=== PATIENT | female | born 1955 | race Caucasian/White ===

== ENCOUNTER 2019-02-07 06:02 | Day surgery (SDC) | payer OTHER ==
[2019-02-07 06:53] LABS: Basophils # (Auto) 0.1 K/mm3 (0.0-0.1); Basophils % (Auto) 0.9 % (0.0-1.8); Eosinophils # (Auto) 0.2 K/mm3 (0.0-0.4); Eosinophils % (Auto) 1.9 % (0.0-4.3); Hematocrit 38.1 % (30.3-42.9); Hemoglobin 13.2 gm/dl (10.1-14.3); Lymphocytes # (Auto) 2.8 K/mm3 (1.2-5.4); Lymphocytes % (Auto) 34.1 % (13.4-35.0); Mean Corpuscular HGB Conc 35 % (30-34); Mean Corpuscular Volume 84 fl (79-97); Monocytes # (Auto) 0.6 K/mm3 (0.0-0.8); Monocytes % (Auto) 7.9 % (0.0-7.3); Platelet Count 396 K/mm3 (140-440); Red Blood Count 4.52 M/mm3 (3.65-5.03); Red Cell Distribution Width 13.8 % (13.2-15.2)
[2019-02-07 07:03] LABS: INR 0.94 (0.87-1.13)
[2019-02-07 07:04] LABS: Partial Thromboplastin Time 26.5 Sec. (24.2-36.6)
[2019-02-07 07:05] LABS: BUN/Creatinine Ratio 20; Blood Urea Nitrogen 12 mg/dL (7-17); Calcium 9.4 mg/dL (8.4-10.2); Hemolysis Index 48
[2019-02-07] MEDS: NACL 0.9% 500 ML 500 ML IV SCH ×2 (07:40→08:45)
[2019-02-07] MEDS ORDERED: HEPARIN/NS 5000 UNIT/500ML(CATH LAB) 1,000 ML IR ONE (08:11)
[2019-02-07] MEDS ORDERED: CALAN ONE (08:12)
[2019-02-07] MEDS: VERSED ONE ×3 (08:46→08:50)
[2019-02-07] MEDS: SUBLIMAZE ONE ×2 (08:48→08:50)
[2019-02-07] MEDS: XYLOCAINE 2% INFILTRATI ONE ×2 (08:50→08:56)
[2019-02-07] MEDS: NITROGLYCERIN SYRINGE 3 ML ONE ×2 (08:57→08:58)
[2019-02-07] MEDS: HEPARIN 10,000 UNITS/10 ML ONE ×2 (08:57→08:58)
[2019-02-07] MEDS ORDERED: ULTRAM PO PRN (09:30)
--- NOTE | 2019-02-07 09:33 | Short Stay Summary ---
Short Stay Documentation Date of service: 02/07/19 - History H&P: obtained from office - Allergies and Medications Current Medications: Allergies No Known Allergies Allergy (Unverified 02/07/19 06:03) Home Medications Medication Instructions Recorded Confirmed Last Taken Type Aspirin [Adult Low Dose Aspirin EC] 81 mg PO DAILY 02/07/19 02/07/19 02/07/19 History 1 tab Fenofibrate Nanocrystallized 145 mg PO DAILY 02/07/19 02/07/19 02/07/19 History [Fenofibrate] 1 tab Hydralazine HCl 50 mg PO BID 02/07/19 02/07/19 02/06/19 History 1 tab ISOSORBIDE MONOnitrate [Imdur ER] 30 mg PO DAILY 02/07/19 02/07/19 02/07/19 History 1 tab hydroCHLOROthiazide 12.5 mg PO DAILY 02/07/19 02/07/19 02/06/19 History [Hydrochlorothiazide] 1 tab Active Medications Sodium Chloride (Nacl 0.9% 500 Ml) 500 mls @ 50 mls/hr IV DIRECT DAYANA Stop: 02/07/19 16:59 Last Admin: 02/07/19 08:45 Dose: 50 mls/hr Documented by: - Brief post op/procedure progress note Date of procedure: 02/07/19 Pre-op diagnosis: chest pain and abnl stress test Post-op diagnosis: other (triple vessel cad) Procedure: see report Anesthesia: local Estimated blood loss: none Pathology: none - Disposition Condition at discharge: Good Disposition: DC-01 TO HOME OR SELFCARE - Discharge Diagnoses (1) Hypertension Status: Chronic Qualifiers: Hypertension type: essential hypertension Qualified Code(s): I10 - Essential (primary) hypertension (2) Hyperlipemia, mixed Status: Chronic (3) CAD (coronary artery disease) Status: Acute Qualifiers: Coronary Disease-Associated Artery/Lesion type: [place] artery [place] vs. transplanted heart: [place] heart Associated angina: with stable angina Qualified Code(s): I25.118 - Atherosclerotic heart disease of [place] coronary artery with other forms of angina pectoris (4) Abnormal cardiovascular stress test Status: Acute Short Stay Discharge Plan Activity: advance as tolerated Diet: regular, low fat, low cholesterol Wound: keep clean and dry Follow up with: MARCIA KIMBROUGH MD [Primary Care Provider] - 7 Days
[2019-02-07 14:40] VITALS: BP 129/81
--- NOTE | 2019-02-07 21:10 | Cardiac Catherization Report ---
LEFT HEART CATHETERIZATION CLINICAL INFORMATION: 1. This is a 64-year-old [place] female with a history of hypertension and hyperlipidemia, has been having chest pain. The stress test showed poor exercise capacity, 4 minutes on Jesse protocol with ST depressions in inferolateral leads suggestive of ischemia with normal LV function on echocardiogram with no significant regurgitation, is brought here for a left heart catheterization despite medical therapy with long-acting nitrates and BP control. 2. It was done under moderate sedation 1 mg Versed and 25 mcg fentanyl. Total sedation time was 15 minutes, started at 8:48 a.m. and finished at 9:03 a.m. 3. Left heart catheterization performed via the right radial artery, sterile technique, local anesthesia, 6-Micronesian radial sheath inserted. 4. Left system engaged with a JL3.5 catheter. Findings: Left main is medium to large caliber patent, bifurcates into a medium caliber, proximal is patent, and then right after a [id number] caliber diagonal, which has an ostial 80% lesion with [id number]-driudw tortuosity of the vessel and then after the septal, which is a medium caliber, the LAD becomes 100%. You see extensive left late collaterals feeding the distal LAD via the diagonal and then the circumflex, medium caliber vessel, proximal to mid, has an 80% lesion going into a small OM1 and OM2 into the distal circumflex, focal lesion, but you see extensive collateralization feeding into the PDA via the circ and the septals, which is a large caliber. 5. The RCA was engaged the with JR4 catheter. It is a large dominant vessel with aneurysm vessels in the proximal mid portion with a proximal 80% in-between two aneurysmal sections and then the mid becomes 90% diffuse disease and becomes 100% distally. See extensive RV branches that did give collaterals into the mid to distal LAD, which is a small-caliber vessel and then the distal RCA is 100%. 6. An LV gram done in HAITIAN and BRUCE view showed normal LV function, EF 55% to 60%. LVEDP 14 mmHg, LV is 148, aortic is 140/69. No gradient across the aortic valve on pullback. The 5-Micronesian catheters taken out by guidewire, 6-Micronesian radial sheath was discontinued. Radial band applied. No hematoma, no bleeding. SUMMARY: Extensive triple-vessel disease with left main patent, LAD mid 100%, diagonal 1 ostial 80%, left to left collaterals feeding the distal LAD, and circumflex mid 80%, with extensive collateralization feeding into a PDA, which is a large caliber. 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 In view of such extensive blockage, the patient will go to [facility] for bypass surgery. Discussed this in detail via search engine optimization analyst with the patient's son and patient. JOB# [id number] BRIANNA/ZAIRA
== END 2019-02-07 13:15 | disposition home or self-care (01) ==
LOC: CATHLABREC 06:02
PROVIDERS: ATTEND Internal Medicine
DX: R07.9 Chest pain, unspecified (principal); I10 Essential (primary) hypertension; I25.10 Atherosclerotic heart disease of native coronary artery without angina pectoris; E78.2 Mixed hyperlipidemia; Z79.82 Long term (current) use of aspirin; Z79.899 Other long term (current) drug therapy; Z82.49 Family history of ischemic heart disease and other diseases of the circulatory system
CPT/HCPCS: 36415; 80048; 85025; 85610; 85730; 93005; 93010; 93458; 99156; C1894; J1644; J2250; J3010; J7040; Q9967

== ENCOUNTER 2020-06-18 00:03 | Inpatient (IN) | payer OTHER ==
[2020-06-18] MEDS ORDERED: ONDANSETRON 4 MG/2 ML INJ IV ONE (00:20)
[2020-06-18] MEDS ORDERED: SODIUM CHLORIDE 0.9% 1000 ML 1,000 ML IV ONE (00:20)
[2020-06-18] MEDS ORDERED: ASPIRIN 325 MG TAB PO ONE (00:21)
--- NOTE | 2020-06-18 00:24 | Emergency Department Report ---
- General Chief complaint: Abdominal Pain Stated complaint: WEAKNESS N/V PUI?: No Time Seen by Provider: 06/18/20 00:19 Source: patient Mode of arrival: Stretcher Limitations: Language Barrier - History of Present Illness Initial comments: Patient is a 65-year-old female that presents emergency room for weakness and nausea, vomiting and abdominal pain. Patient states her symptoms started approximately 2 hours ago. Patient states that her family called EMS. Patient was brought in by EMS. Report received from EMS. EMS states the patient was diaphoretic and bradycardic. Patient EKG shows sinus bradycardia. EMS gave the patient some fluids and Zofran and her symptoms improved. Patient states she vomited 3 times and is having generalized abdominal pain. Patient states the abdominal pain is a 4 out of 10. Patient states the abdominal pain is better with rest and worse with movement and vomiting. Patient denies fever and chills. Patient denies cough. Patient denies chest pain. Patient denies shortness of breath. Patient states that her weakness started after vomiting 3 times. Patient denies recent travel. Patient denies recent international travel. Patient denies exposure to the novel coronavirus. Patient denies sick contacts. Patient denies fever and chills. Patient denies cough. Patient denies diarrhea. Patient denies coming in contact with anybody with symptoms of the novel coronavirus. Complaint: generalized weakness - Related Data Home Medications Medication Instructions Recorded Confirmed Last Taken Aspirin [Adult Low Dose Aspirin EC] 81 mg PO DAILY 02/07/19 02/07/19 02/07/19 1 tab Fenofibrate Nanocrystallized 145 mg PO DAILY 02/07/19 02/07/19 02/07/19 [Fenofibrate] 1 tab Hydralazine HCl 50 mg PO BID 02/07/19 02/07/19 02/06/19 1 tab ISOSORBIDE MONOnitrate [Imdur ER] 30 mg PO DAILY 02/07/19 02/07/19 02/07/19 1 tab hydroCHLOROthiazide 12.5 mg PO DAILY 02/07/19 02/07/19 02/06/19 [Hydrochlorothiazide] 1 tab Previous Rx's Medication Instructions Recorded Last Taken Type AtorvaSTATin [Lipitor] 20 mg PO QHS #30 tab 02/07/19 Unknown Rx Allergies Allergy/AdvReac Type Severity Reaction Status Date / Time aspirin Allergy Unknown Verified 06/18/20 03:42 ED Review of Systems ROS: Stated complaint: WEAKNESS N/V Other details as noted in HPI Constitutional: diaphoresis, weakness. denies: chills, fever Eyes: denies: eye pain, eye discharge, vision change ENT: denies: ear pain, throat pain Respiratory: denies: cough, shortness of breath, wheezing Cardiovascular: denies: chest pain, palpitations Endocrine: no symptoms reported Gastrointestinal: abdominal pain, nausea, vomiting. denies: diarrhea Genitourinary: denies: urgency, dysuria, discharge Musculoskeletal: denies: back pain, joint swelling, arthralgia Skin: denies: rash, lesions Neurological: weakness. denies: headache, paresthesias Psychiatric: denies: anxiety, depression Hematological/Lymphatic: denies: easy bleeding, easy bruising ED Past Medical Hx - Past Medical History Previous Medical History?: Yes Hx Hypertension: Yes Hx Heart Attack/AMI: Yes Hx Diabetes: Yes - Surgical History Past Surgical History?: Yes Hx Open Heart Surgery: Yes - Family History Family history: no significant - Social History Smoking Status: Never Smoker - Medications Home Medications: Home Medications Medication Instructions Recorded Confirmed Last Taken Type Aspirin [Adult Low Dose Aspirin EC] 81 mg PO DAILY 02/07/19 02/07/19 02/07/19 History 1 tab AtorvaSTATin [Lipitor] 20 mg PO QHS #30 tab 02/07/19 Unknown Rx Fenofibrate Nanocrystallized 145 mg PO DAILY 02/07/19 02/07/19 02/07/19 History [Fenofibrate] 1 tab Hydralazine HCl 50 mg PO BID 02/07/19 02/07/19 02/06/19 History 1 tab ISOSORBIDE MONOnitrate [Imdur ER] 30 mg PO DAILY 02/07/19 02/07/19 02/07/19 History 1 tab hydroCHLOROthiazide 12.5 mg PO DAILY 02/07/19 02/07/19 02/06/19 History [Hydrochlorothiazide] 1 tab ED Physical Exam - General General appearance: alert, in no apparent distress - Head Head exam: Present: atraumatic, normocephalic - Eye Eye exam: Present: normal appearance, PERRL, EOMI Pupils: Present: normal accommodation - ENT ENT exam: Present: mucous membranes moist - Neck Neck exam: Present: normal inspection - Respiratory Respiratory exam: Present: normal lung sounds bilaterally, other (Midline sternal scar noted). Absent: respiratory distress - Cardiovascular Cardiovascular Exam: Present: regular rate, normal rhythm, bradycardia. Absent: systolic murmur, diastolic murmur, rubs, gallop - GI/Abdominal GI/Abdominal exam: Present: soft, tenderness (Generalized tenderness), normal bowel sounds. Absent: distended, guarding - Extremities Exam Extremities exam: Present: normal inspection - Back Exam Back exam: Present: normal inspection - Neurological Exam Neurological exam: Present: alert, oriented X3 - Psychiatric Psychiatric exam: Present: normal affect, normal mood - Skin Skin exam: Present: warm, dry, intact, normal color. Absent: rash - Assessment Assessment Interval: Baseline - Level of Consciousness 1a. Level of Consciousness: alert/keenly responsive - LOC Questions 1b. LOC Questions: answers both correctly - LOC Command 1c. LOC Commands: performs tasks correctly - Best Gaze 2. Best Gaze: normal - Visual 3. Visual: no visual loss - Facial Palsy 4. Facial Palsy: normal symmetrical movement - Motor Arm 5a. Motor Arm Left: no drift 5b. Motor Arm Right: no drift - Motor Leg 6a. Motor Leg Left: no drift 6b. Motor Leg Right: no drift - Limb Ataxia 7. Limb Ataxia: absent - Sensory 8. Sensory: normal - Best Language 9. Best Language: no aphasia - Dysarthria 10. Dysarthria: normal - Extinction and Inattention 11. Extinction/Inattention: no abnormality - Scoring Total Score: 0 Stroke Severity: No Stroke Symptoms ED Course Vital Signs 06/18/20 06/18/20 06/18/20 01:06 01:16 01:30 Pulse Rate 50 L 64 Respiratory 15 16 Rate Blood Pressure 122/83 122/83 Blood Pressure [Right] O2 Sat by Pulse 100 99 99 Oximetry 06/18/20 06/18/20 02:00 03:35 Pulse Rate 51 L 57 L Respiratory 16 14 Rate Blood Pressure 169/48 Blood Pressure 164/75 [Right] O2 Sat by Pulse 100 98 Oximetry - Reevaluation(s) Reevaluation #1: Patient states she is feeling better. Heart rate is stable but bradycardic. Patient on nurse monitoring 06/18/20 01:50 Reevaluation #2: I discussed all results with patient. I discussed plan of care with patient. Patient agrees with plan of care and admission. Patient to be admitted to the hospitalist service. 06/18/20 03:50 - Consultations Consultation #1: Hospitalist consulted for admission. Hospitalist to admit patient. 06/18/20 03:50 Consultation #2: I discussed the CT findings with Dr. Hills, vascular surgery. 06/18/20 03:54 ED Medical Decision Making - Lab Data Result diagrams: 06/18/20 00:41 06/18/20 00:41 - EKG Data -: EKG Interpreted by Nm EKG shows normal: sinus rhythm, axis, intervals, QRS complexes, ST-T waves Rate: bradycardia - Radiology Data Radiology results: report reviewed CHEST 1 VIEW INDICATION / CLINICAL INFORMATION: weakness. COMPARISON: None available. FINDINGS: SUPPORT DEVICES: None. HEART / MEDIASTINUM: No significant abnormality. LUNGS / PLEURA: 1.6 cm nodule in the right lung base No pneumothorax. ADDITIONAL FINDINGS: No significant additional findings. IMPRESSION: Sternotomy. 1.6 cm nodular density in the right lung base CT head/brain wo con INDICATION / CLINICAL INFORMATION: Patient has complaints of weakness. TECHNIQUE: All CT scans at this location are performed using CT dose reduction for ALARA by means of automated exposure control. COMPARISON: None available. FINDINGS: Ventricle size is normal. No mass or mass effect is seen. There is no evidence of intracranial hemorrhage. No obvious area of infarction is identified. Visualized paranasal sinuses are clear. IMPRESSION: No acute findings CT abdomen pelvis w con INDICATION / CLINICAL INFORMATION: Patient has complaints of abdominal Pain. TECHNIQUE: All CT scans at this location are performed using CT dose reduction for ALARA by means of automated exposure control. COMPARISON: None available. FINDINGS: There is a 1.5 cm noncalcified nodule in the right middle lobe. No free fluid is seen in the abdomen. An endovascular stent is present in the abdominal aorta and iliac a rteries with an endoleak present. The aorta measures 5.25 cm in maximal diameter. The liver, spleen, kidneys, pancreas and adrenal glands are normal. In the pelvis, no free fluid is seen. Uterus is enlarged. No enlarged lymph nodes are identified. The bladder is normal. The appendix is not well visualized. No significant skeletal abnormality is seen. IMPRESSION: 1. 1.5 cm noncalcified nodule in the right middle lobe 2. Endovascular stent in the abdominal aorta and iliac arteries with an endoleak present. The aorta measures 5.25 cm in maximal diameter 3. Enlarged uterus - Medical Decision Making Patient is a 65-year-old female that presents emergency room for weakness, nausea whole body, abdominal pain. Patient is been advised consistent with gastroenteritis. Patient was also found to be bradycardic. Patient currently stable in the ER. Patient's labs are remarkable for hyponatremia and hyperkalemia. Patient admitted to the hospitalist service for further evaluation and treatment. Patient had a CT scan of the abdomen which showed no acute findings however did show some endovascular leakage and I discussed this with vascular surgery and vascular surgery said he just needs to be monitored. Patient responded well to treatment. Patient did not have any further nausea or vomiting or diaphoresis in the ER. - Differential Diagnosis Bradycardia, weakness,N/V, gastroenteritis, diaphoresis, abdominal pain Critical Care Time: Yes Critical care time in (mins) excluding proc time.: 35 Critical care attestation.: If time is entered above; I have spent that time in minutes in the direct care of this critically ill patient, excluding procedure time. Critical Care Time: 35 minutes ED Disposition Clinical Impression: Bradycardia, Weakness, Gastroenteritis, Hyponatremia, Hypokalemia Abdominal pain Qualifiers: Abdominal location: generalized Qualified Code(s): R10.84 - Generalized abdominal pain Nausea & vomiting Qualifiers: Vomiting type: unspecified Vomiting Intractability: non-intractable Qualified Code(s): R11.2 - Nausea with vomiting, unspecified Disposition: 09 OP ADMIT IP TO THIS HOSP Is pt being admited?: Yes Does the pt Need Aspirin: No Condition: Critical Time of Disposition: 03:52
--- NOTE | 2020-06-18 00:45 | XRay Report ---
CHEST 1 VIEW INDICATION / CLINICAL INFORMATION: weakness. COMPARISON: None available. FINDINGS: SUPPORT DEVICES: None. HEART / MEDIASTINUM: No significant abnormality. LUNGS / PLEURA: 1.6 cm nodule in the right lung base No pneumothorax. ADDITIONAL FINDINGS: No significant additional findings. IMPRESSION: Sternotomy. 1.6 cm nodular density in the right lung base Signer Name: Orlando Hernandez MD FACR Signed: 06/18/2020 12:40 AM Workstation Name: [id number]
[2020-06-18 01:16] LABS: Basophils % (Auto) 0.3 % (0.0-1.8); Eosinophils # (Auto) 0.1 K/mm3 (0.0-0.4); Eosinophils % (Auto) 1.4 % (0.0-4.3); Hematocrit 39.4 % (30.3-42.9); Hemoglobin 13.8 gm/dl (10.1-14.3); Lymphocytes # (Auto) 2.3 K/mm3 (1.2-5.4); Lymphocytes % (Auto) 31.6 % (13.4-35.0); Mean Corpuscular HGB Conc 35 % (30-34); Mean Corpuscular Volume 81 fl (79-97); Monocytes # (Auto) 0.6 K/mm3 (0.0-0.8); Monocytes % (Auto) 8.3 % (0.0-7.3); Platelet Count 243 K/mm3 (140-440); Red Blood Count 4.84 M/mm3 (3.65-5.03)
[2020-06-18 01:30] LABS: Alanine Aminotransferase 8 units/L (7-56); Albumin 4.4 g/dL (3.9-5); BUN/Creatinine Ratio 10; Bilirubin,Direct 0.2 mg/dL (0-0.2); Blood Urea Nitrogen 6 mg/dL (7-17); Calcium 9.6 mg/dL (8.4-10.2); Hemolysis Index 14
[2020-06-18] MEDS ORDERED: ASPIRIN 325 MG TAB ONE (02:28)
[2020-06-18] MEDS ORDERED: ONDANSETRON 4 MG/2 ML INJ ONE (02:28)
[2020-06-18 02:54] LABS: Bilirubin,Urine NEG (Negative); Blood,Urine NEG (Negative); Color,Urine Colorless (Yellow); Protein,Urine <15 mg/dL mg/dL (Negative); RBC,Urine < 1.0 /HPF (0.0-6.0); Urobilinogen,Urine < 2.0 mg/dL (<2.0); WBC,Urine < 1.0 /HPF (0.0-6.0)
--- NOTE | 2020-06-18 02:54 | Cat Scan Report ---
CT head/brain wo con INDICATION / CLINICAL INFORMATION: Patient has complaints of weakness. TECHNIQUE: All CT scans at this location are performed using CT dose reduction for ALARA by means of automated e xposure control. COMPARISON: None available. FINDINGS: Ventricle size is normal. No mass or mass effect is seen. There is no evidence of intracranial hemorr suzie. No obvious area of infarction is identified. Visualized paranasal sinuses are clear. IMPRESSION: No acute findings Signer Name: Orlando Hernandez MD FACR Signed: 06/18/2020 2:49 AM Workstation Name: [id number]
--- NOTE | 2020-06-18 02:57 | Cat Scan Report ---
CT abdomen pelvis w con INDICATION / CLINICAL INFORMATION: Patient has complaints of abdominal Pain. TECHNIQUE: All CT scans at this location are performed using CT dose reduction for ALARA by means of automated e xposure control. COMPARISON: None available. FINDINGS: There is a 1.5 cm noncalcified nodule in the right middle lobe. No free fluid is seen in the abdomen. An endovascular stent is present in the abdominal aorta and iliac arteries with an endoleak present. The aorta measures 5.25 cm in maximal diameter. The liver, spleen, kidneys, pancreas and adrenal gla nds are normal. In the pelvis, no free fluid is seen. Uterus is enlarged. No enlarged lymph nodes are identified. The bladder is normal. The appendix is not well visualized. No significant skeletal abnormality is seen. IMPRESSION: 1. 1.5 cm noncalcified nodule in the right middle lobe 2. Endovascular stent in the abdominal aorta and iliac arteries with an endoleak present. The aorta m easures 5.25 cm in maximal diameter 3. Enlarged uterus Signer Name: Orlando Hernandez MD FACR Signed: 06/18/2020 2:53 AM Workstation Name: [id number]
[2020-06-18] MEDS: POTASSIUM CHLORIDE 10 MEQ 10 MEQ/100 ML BAG IV SCH ×2 (04:10→13:00)
[2020-06-18] MEDS ORDERED: POTASSIUM CHLORIDE ER 20 MEQ TAB PO ONE (05:05)
[2020-06-18] MEDS ORDERED: MORPHINE 2 MG/1 ML INJ IV PRN (05:07)
[2020-06-18] MEDS ORDERED: ONDANSETRON 4 MG/2 ML INJ IV PRN (05:07)
[2020-06-18] MEDS: SODIUM CHLORIDE 0.9% 1000 ML 1,000 ML IV SCH ×2 (05:46→21:31)
--- NOTE | 2020-06-18 06:21 | History and Physical Report ---
History of Present Illness Date of examination: 06/18/20 Date of admission: 06/18/20 03:51 Chief complaint: Abdominal ipain , nausea and vomiting , weakness History of present illness: 65 year old female brought by EMS because of abdominal pain, nausea and vomiting and weakness, patient said symptoms started about 2 hours prior to presentation with diffuse abdominal pain and there was history of diaphoresis with bradycardia when EMS picked patient up. There was no history of fever or chills, no history of shortness of breath cough or chest pain. Past History Past Medical History: CAD Past Surgical History: CABG Social history: no significant social history Family history: no significant family history Medications and Allergies Allergies Allergy/AdvReac Type Severity Reaction Status Date / Time aspirin Allergy Unknown Verified 06/18/20 03:42 Home Medications Medication Instructions Recorded Confirmed Last Taken Type Aspirin [Adult Low Dose Aspirin EC] 81 mg PO DAILY 02/07/19 02/07/19 02/07/19 History 1 tab AtorvaSTATin [Lipitor] 20 mg PO QHS #30 tab 02/07/19 Unknown Rx Fenofibrate Nanocrystallized 145 mg PO DAILY 02/07/19 02/07/19 02/07/19 History [Fenofibrate] 1 tab Hydralazine HCl 50 mg PO BID 02/07/19 02/07/19 02/06/19 History 1 tab ISOSORBIDE MONOnitrate [Imdur ER] 30 mg PO DAILY 02/07/19 02/07/19 02/07/19 History 1 tab hydroCHLOROthiazide 12.5 mg PO DAILY 02/07/19 02/07/19 02/06/19 History [Hydrochlorothiazide] 1 tab Active Meds: Active Medications Sodium Chloride (Nacl 0.9% 1000 Ml) 1,000 mls @ 75 mls/hr IV DIRECT DAYANA Last Admin: 06/18/20 05:46 Dose: 75 mls/hr Documented by: Morphine Sulfate (Morphine) 2 mg IV Q4H PRN PRN Reason: Pain, Moderate (4-6) Ondansetron HCl (Zofran) 4 mg IV Q4H PRN PRN Reason: Nausea And Vomiting Review of Systems Constitutional: sweats, weakness, malaise, no weight loss, no weight gain, no fever, no chills, no night sweats, no anorexia, no fatigue, no lethargy Eyes: bilateral: other (NO BILATERAL EYE SYMPTOMS) Ears, nose, mouth and throat: no ear pain, no nose pain, no nasal congestion, no nasal discharge, no sinus pressure, no mouth pain, no dysphagia, no hoarseness, no sore throat, no swelling in mouth, no headache, no vertigo Breasts: deferred Cardiovascular: no chest pain, no orthopnea, no palpitations, no edema, no syncope, no lightheadedness, no shortness of breath Respiratory: no cough, no shortness of breath, no dyspnea on exertion, no congestion, no wheezing Gastrointestinal: abdominal pain, nausea, vomiting, no diarrhea, no constipation, no change in bowel habits, no hematochezia, no heartburn, no jaund ice Genitourinary Female: no Menstruation: postmenopausal Rectal: no pain, no itching Musculoskeletal: no neck stiffness, no neck pain, no arm numbness/tingling, no low back pain, no muscle weakness Integumentary: no rash, no pruritis, no redness, no sores, no wounds, no jaundice, no growths, no bullae, no lesions, no acne Neurological: no weakness, no parathesias, no numbness, no tingling, no seizures, no syncope, no tremors, no vertigo, no headaches, no migraines, no convulsions, no aphasia, no change in speech, no change in mentation, no confusion Psychiatric: no anxiety, no memory loss, no insomnia, no hypersomnia, no confusion Endocrine: no cold intolerance, no polydipsia, no polyuria, no nocturia, no palpatations Hematologic/Lymphatic: no easy bruising, no easy bleeding, no lymphadenopathy Exam - Constitutional Vitals: Temp Pulse Resp BP Pulse Ox 57 L 14 164/75 98 06/18/20 03:35 06/18/20 03:35 06/18/20 03:35 06/18/20 03:35 General appearance: Present: mild distress - EENT Eyes: Present: PERRL, EOM intact ENT: hearing intact, clear oral mucosa, dentition normal - Neck Neck: Present: supple, normal ROM - Respiratory Respiratory effort: normal - Cardiovascular Rhythm: regular Heart Sounds: Present: S1 & S2. Absent: gallop, systolic murmur, diastolic murmur, click - Extremities Extremities: no ischemia, No edema Peripheral Pulses: within normal limits - Abdominal General gastrointestinal: Present: soft, tender, non-distended. Absent: non- tender, distended, rigid, hepatomegaly, splenomegaly Female genitourinary: Present: deferred - Rectal Rectal Exam: deferred - Integumentary Integumentary: Present: clear, warm, dry. Absent: jaundice, rash - Musculoskeletal Musculoskeletal: strength equal bilaterally - Psychiatric Psychiatric: appropriate mood/affect - Neurologic Neurologic: CNII-XII intact HEART Score - HEART Score Age: 45-65 Risk factors: 1-2 risk factors Troponin: Troponin T < 0.010 ng/mL (0.00-0.029) 06/18/20 00:41 Troponin: < normal limit - Critical Actions Critical Actions: 0-3 pts:0.9-1.7%risk of adverse cardiac event.Candidate for discharge Results - Labs CBC & Chem 7: 06/18/20 00:41 06/18/20 00:41 Labs: Laboratory Last Values WBC 7.1 K/mm3 (4.5-11.0) 06/18/20 00:41 RBC 4.84 M/mm3 (3.65-5.03) 06/18/20 00:41 Hgb 13.8 gm/dl (10.1-14.3) 06/18/20 00:41 Hct 39.4 % (30.3-42.9) 06/18/20 00:41 MCV 81 fl (79-97) 06/18/20 00:41 MCH 29 pg (28-32) 06/18/20 00:41 MCHC 35 % (30-34) H 06/18/20 00:41 RDW 14.0 % (13.2-15.2) 06/18/20 00:41 Plt Count 243 K/mm3 (140-440) 06/18/20 00:41 Lymph % (Auto) 31.6 % (13.4-35.0) 06/18/20 00:41 [place] % (Auto) 8.3 % (0.0-7.3) H 06/18/20 00:41 Eos % (Auto) 1.4 % (0.0-4.3) 06/18/20 00:41 Baso % (Auto) 0.3 % (0.0-1.8) 06/18/20 00:41 Lymph # 2.3 K/mm3 (1.2-5.4) 06/18/20 00:41 [place] # 0.6 K/mm3 (0.0-0.8) 06/18/20 00:41 Eos # 0.1 K/mm3 (0.0-0.4) 06/18/20 00:41 Baso # 0.0 K/mm3 (0.0-0.1) 06/18/20 00:41 Seg Neutrophils % 58.4 % (40.0-70.0) 06/18/20 00:41 Seg Neutrophils # 4.2 K/mm3 (1.8-7.7) 06/18/20 00:41 Sodium 118 mmol/L (137-145) L* 06/18/20 00:41 Potassium 3.1 mmol/L (3.6-5.0) L 06/18/20 00:41 Chloride 79.8 mmol/L (98-107) L 06/18/20 00:41 Carbon Dioxide 22 mmol/L (22-30) 06/18/20 00:41 Anion Gap 19 mmol/L 06/18/20 00:41 BUN 6 mg/dL (7-17) L 06/18/20 00:41 Creatinine 0.6 mg/dL (0.6-1.2) 06/18/20 00:41 Estimated GFR > 60 ml/min 06/18/20 00:41 BUN/Creatinine Ratio 10 % 06/18/20 00:41 Glucose 114 mg/dL (65-100) H 06/18/20 00:41 Calcium 9.6 mg/dL (8.4-10.2) 06/18/20 00:41 Magnesium 1.70 mg/dL (1.7-2.3) 06/18/20 03:30 Total Bilirubin 1.60 mg/dL (0.1-1.2) H 06/18/20 00:41 Direct Bilirubin 0.2 mg/dL (0-0.2) 06/18/20 00:41 Indirect Bilirubin 1.4 mg/dL 06/18/20 00:41 AST 19 units/L (5-40) 06/18/20 00:41 ALT 8 units/L (7-56) 06/18/20 00:41 Alkaline Phosphatase 85 units/L (35-129) 06/18/20 00:41 Total Creatine Kinase 232 units/L (30-135) H 06/18/20 00:41 Troponin T < 0.010 ng/mL (0.00-0.029) 06/18/20 00:41 Total Protein 7.1 g/dL (6.3-8.2) 06/18/20 00:41 Albumin 4.4 g/dL (3.9-5) 06/18/20 00:41 Albumin/Globulin Ratio 1.6 % 06/18/20 00:41 Urine Color Colorless (Yellow) 06/18/20 Unknown Urine Turbidity Clear (Clear) 06/18/20 Unknown Urine pH 7.0 (5.0-7.0) 06/18/20 Unknown Ur Specific [place] 1.003 (1.003-1.030) 06/18/20 Unknown Urine Protein <15 mg/dl mg/dL (Negative) 06/18/20 Unknown Urine Glucose (UA) Neg mg/dL (Negative) 06/18/20 Unknown Urine Ketones Tr mg/dL (Negative) 06/18/20 Unknown Urine Blood Neg (Negative) 06/18/20 Unknown Urine Nitrite Neg (Negative) 06/18/20 Unknown Urine Bilirubin Neg (Negative) 06/18/20 Unknown Urine Urobilinogen < 2.0 mg/dL (<2.0) 06/18/20 Unknown Ur Leukocyte Esterase Neg (Negative) 06/18/20 Unknown Urine WBC (Auto) < 1.0 /HPF (0.0-6.0) 06/18/20 Unknown Urine RBC (Auto) < 1.0 /HPF (0.0-6.0) 06/18/20 Unknown Assessment and Plan - Patient Problems (1) Abdominal pain Current Visit: Yes Status: Acute Qualifiers: Abdominal location: generalized Qualified Code(s): R10.84 - Generalized abdominal pain Plan to address problem: I I.V MORPHINE FOR PAIN 2. I.V ZOFRAN FOR NAUSEA AND VOMITING 3. VASCULAR SURGICAL CONSULT TO EVALUATE ABDOMINAL AORTIC ANEURYSM (2) Bradycardia Current Visit: Yes Status: Acute Plan to address problem: 1.SERIAL TROPONIN LEVEL 2. 2-D ECHOCARDIOGRAM 3. TELEMETRY MONITORING (3) Hypokalemia Current Visit: Yes Status: Acute Plan to address problem: 1. KCL REPLACEMENT 2. BMP MORNITORING (4) Hyponatremia Current Visit: Yes Status: Acute Plan to address problem: 1. I.V NORMAL SALINE 2. BMP MONITORING (5) Abdominal aortic aneurysm Current Visit: Yes Status: Acute Plan to address problem: VASCULAR SURGICAL CONSULT
--- NOTE | 2020-06-18 09:09 | Consultation ---
History of Present Illness - Reason for Consult Consult date: 06/18/20 Endoleak Requesting physician: TRENT HASTINGS - History of Present Illness HPI: 65-year-old female who presented to the emergency department with complaints of generalized malaise, nausea and non-bilious emesis 1 to 2 hours prior to her presentation. In addition, the patient states she began to feel some discomfort in her abdomen which she thought was related to feeling anxious due to not feeling well. She states she has experienced this general discomfort all her life intermittently. The patient has a history of an abdominal aortic aneurysm repair back in October 2019 at an outside institution. Her aneurysm was fixed from an endovascular approach but the patient does not know where or who performed the procedure. At the time of repair, the patient states she was having abdominal pain which led to the finding of her aneurysm and subsequent repair. The patient states she has not followed up with her surgeon since the operation. The patient denies lower extremity claudication. Of note, the patient had open heart surgery performed approximately 1 year ago. She denies symptoms of chest pain or shortness of breath on exertion. 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 after midnight Past History Past Medical History: CAD Past Surgical History: CABG Social history: no significant social history Family history: no significant family history Medications and Allergies Allergies Allergy/AdvReac Type Severity Reaction Status Date / Time aspirin Allergy Unknown Verified 06/18/20 03:42 Home Medications Medication Instructions Recorded Confirmed Last Taken Type Aspirin [Adult Low Dose Aspirin EC] 81 mg PO DAILY 02/07/19 02/07/19 02/07/19 History 1 tab AtorvaSTATin [Lipitor] 20 mg PO QHS #30 tab 02/07/19 Unknown Rx Fenofibrate Nanocrystallized 145 mg PO DAILY 02/07/19 02/07/19 02/07/19 History [Fenofibrate] 1 tab Hydralazine HCl 50 mg PO BID 02/07/19 02/07/19 02/06/19 History 1 tab ISOSORBIDE MONOnitrate [Imdur ER] 30 mg PO DAILY 02/07/19 02/07/19 02/07/19 History 1 tab hydroCHLOROthiazide 12.5 mg PO DAILY 02/07/19 02/07/19 02/06/19 History [Hydrochlorothiazide] 1 tab Active Meds: Active Medications Sodium Chloride (Nacl 0.9% 1000 Ml) 1,000 mls @ 75 mls/hr IV DIRECT DAYANA Last Admin: 06/18/20 05:46 Dose: 75 mls/hr Documented by: Morphine Sulfate (Morphine) 2 mg IV Q4H PRN PRN Reason: Pain, Moderate (4-6) Ondansetron HCl (Zofran) 4 mg IV Q4H PRN PRN Reason: Nausea And Vomiting Exam - Constitutional Vitals: Temp Pulse Resp BP Pulse Ox 54 L 16 147/69 83 L 06/18/20 05:30 06/18/20 05:11 06/18/20 05:51 06/18/20 05:51 Results - Labs CBC & Chem 7: 06/18/20 00:41 06/18/20 00:41 Labs: Abnormal lab results 06/18/20 06/18/20 06/18/20 Range/Units 00:41 00:41 00:41 MCHC 35 H (30-34) % [place] % (Auto) 8.3 H (0.0-7.3) % Sodium 118 L* (137-145) mmol/L Potassium 3.1 L (3.6-5.0) mmol/L Chloride 79.8 L (98-107) mmol/L BUN 6 L (7-17) mg/dL Glucose 114 H (65-100) mg/dL Total Bilirubin 1.60 H (0.1-1.2) mg/dL Total Creatine Kinase 232 H (30-135) units/L
--- NOTE | 2020-06-18 11:18 | Anesthesia Consultation ---
<AMERICA PARSONS - Last Filed: 06/18/20 11:14> Anesthesia Consult and Med Hx Date of service: 06/18/20 - Airway Anesthetic Teeth Evaluation: Poor ROM Head & Neck: Adequate Mental/Hyoid Distance: Adequate Mallampati Class: Class II Intubation Access Assessment: Probably Good - Pre-Operative Health Status ASA Pre-Surgery Classification: ASA3 Proposed Anesthetic Plan: General, MAC - Pulmonary Hx Smoking: No Hx Asthma: No Hx Respiratory Symptoms: Yes (lung biospy 2019 "spots in lung") SOB: No COPD: No Home Oxygen Therapy: No Hx Pneumonia: No Hx Sleep Apnea: No - Cardiovascular System Hx Hypertension: Yes Hx Coronary Artery Disease: Yes (CABG 02/2019) Hx Heart Attack/AMI: Yes Hx Angina: Yes Hx Percutaneous Transluminal Coronary Angioplasty (PTCA): No Hx Cardia Arrhythmia: No Hx Pacemaker: No Hx Internal Defibrillator: No Hx Valvular Heart Disease: No Hx Heart Murmur: No Hx Peripheral Vascular Disease: No - Central Nervous System Hx Neuromuscular Disorder: No Hx Seizures: No CVA: No Hx Back Pain: No Hx Psychiatric Problems: No - Gastrointestinal Hx Ulcer: No Hx Gastroesophageal Reflux Disease: No - Endocrine Hx Renal Disease: No Hx End Stage Renal Disease: No Hx Cirrhosis: No Hx Liver Disease: No Hx Insulin Dependent Diabetes: No Hx Non-Insulin Dependent Diabetes: No Hx Thyroid Disease: No Hx Hypothyroidism: No Hx Hyperthyroidism: No - Hematic Hx Anemia: Yes Hx Sickle Cell Disease: No - Other Systems Hx Alcohol Use: No Hx Substance Use: No Hx Cancer: No Hx Obesity: No <EVANGELINA SERNA - Last Filed: 06/19/20 10:53> Anesthesia Consult and Med Hx - Airway Anesthetic Teeth Evaluation: Poor ROM Head & Neck: Adequate Mental/Hyoid Distance: Adequate Mallampati Class: Class II Intubation Access Assessment: Probably Good - Pulmonary Exam CTA: Yes - Cardiac Exam Cardiac Exam: RRR - Pre-Operative Health Status ASA Pre-Surgery Classification: ASA3 Proposed Anesthetic Plan: MAC - Pulmonary Hx Respiratory Symptoms: No - Cardiovascular System Hx Hypertension: Yes Hx Coronary Artery Disease: Yes Hx Heart Attack/AMI: Yes Hx Pacemaker: No Hx Internal Defibrillator: No - Central Nervous System CVA: No - Endocrine Hx Renal Disease: No Hx Liver Disease: No Hx Insulin Dependent Diabetes: No Hx Non-Insulin Dependent Diabetes: No - Additional Comments Anesthesia Medical History Comments: Hx AAA s/p EVAR in 2019 now with abdominal pain and evidence of endoleak on imaging. Scheduled for aortogram w/ possible endoleak repair in label coder. Plan MAC but will convert to GA if procedure becomes more extensive. pRBCs on standby. Will place large bore IV and arterial line pre-procedure.
--- NOTE | 2020-06-18 13:05 | Consultation ---
History of Present Illness Consult date: 06/18/20 Requesting physician: NEAL BARBOUR Consult reason: known to you, pre op evaluation History of present illness: the pt is a 65-year-old female with a past medical history of AAA repair in 10/2019, CAD s/p CABG x4 in 02/2019, HTN, HLP. She is followed in our office by Dr. Valdivia. She presented to the emergency department with complaints of generalized malaise, nausea and non-bilious emesis 1 to 2 hours prior to her p resentation. In addition, the patient states she began to feel some discomfort in her abdomen which she thought was related to feeling anxious due to not feeling well. 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 Per vascular team, patient would benefit from diagnostic aortogram with possible endoleak repair which is currently scheduled for tomorrow. Cardiology has been consulted to provide preoperative cardiac risk stratification. Pt denies any cardiac complaints. tte done 02/2019 showed EF 55-60%, mild TR. LHC 02/2019 showed triple vessel CAD - pt referred for CABG. Past History Past Medical History: CAD, other (as per HPI) Past Surgical History: CABG Social history: no significant social history Family history: no significant family history Medications and Allergies Allergies Allergy/AdvReac Type Severity Reaction Status Date / Time aspirin Allergy Unknown Verified 06/18/20 03:42 Home Medications Medication Instructions Recorded Confirmed Last Taken Type Aspirin [Adult Low Dose Aspirin EC] 81 mg PO DAILY 02/07/19 02/07/19 02/07/19 History 1 tab AtorvaSTATin [Lipitor] 20 mg PO QHS #30 tab 02/07/19 Unknown Rx Fenofibrate Nanocrystallized 145 mg PO DAILY 02/07/19 02/07/19 02/07/19 History [Fenofibrate] 1 tab Hydralazine HCl 50 mg PO BID 02/07/19 02/07/19 02/06/19 History 1 tab ISOSORBIDE MONOnitrate [Imdur ER] 30 mg PO DAILY 02/07/19 02/07/19 02/07/19 History 1 tab hydroCHLOROthiazide 12.5 mg PO DAILY 02/07/19 02/07/19 02/06/19 History [Hydrochlorothiazide] 1 tab Active Meds: Active Medications Sodium Chloride (Nacl 0.9% 1000 Ml) 1,000 mls @ 75 mls/hr IV DIRECT DAYANA Last Admin: 06/18/20 05:46 Dose: 75 mls/hr Documented by: Morphine Sulfate (Morphine) 2 mg IV Q4H PRN PRN Reason: Pain, Moderate (4-6) Ondansetron HCl (Zofran) 4 mg IV Q4H PRN PRN Reason: Nausea And Vomiting Review of Systems Constitutional: malaise, no weight loss, no weight gain, no fever, no chills, no sweats Ears, nose, mouth and throat: no ear pain, no nose pain, no sinus pressure, no sinus pain Cardiovascular: no chest pain, no orthopnea, no palpitations, no rapid/irregular heart beat, no edema, no syncope, no lightheadedness, no shortness of breath, no dyspnea on exertion Respiratory: no cough, no shortness of breath, no dyspnea on exertion, no coco estion, no pleurisy, no pain on inspiration Gastrointestinal: abdominal pain, nausea, vomiting, no diarrhea, no constipation, no change in bowel habits Genitourinary Female: no pelvic pain, no flank pain, no dysuria, no urinary frequency, no urgency Musculoskeletal: no neck stiffness, no neck pain, no shooting arm pain, no arm numbness/tingling, no low back pain, no shooting leg pain Integumentary: no rash, no pruritis, no redness, no sores, no wounds Neurological: no head injury, no paralysis, no weakness, no parathesias, no numbness, no tingling, no seizures, no syncope Psychiatric: no anxiety Endocrine: no cold intolerance, no heat intolerance Hematologic/Lymphatic: no easy bruising, no easy bleeding Allergic/Immunologic: no urticaria Physical Examination Vital Signs Pulse Ox 100 06/18/20 01:06 General appearance: no acute distress HEENT: Positive: PERRL, Normocephaly, Mucus Membranes Moist Neck: Positive: neck supple, trachea midline Cardiac: Positive: Reg Rate and Rhythm, S1/S2 Lungs: Positive: Decreased Breath Sounds Neuro: Positive: Grossly Intact Abdomen: Negative: Tender Skin: Negative: Rash Musculoskeletal: No Pain Extremities: Absent: edema Results 06/18/20 00:41 06/18/20 00:41 Cardiac Enzymes 06/18/20 Range/Units 00:41 AST 19 (5-40) units/L CBC 06/18/20 Range/Units 00:41 WBC 7.1 (4.5-11.0) K/mm3 RBC 4.84 (3.65-5.03) M/mm3 Hgb 13.8 (10.1-14.3) gm/dl Hct 39.4 (30.3-42.9) % Plt Count 243 (140-440) K/mm3 Lymph # 2.3 (1.2-5.4) K/mm3 [place] # 0.6 (0.0-0.8) K/mm3 Eos # 0.1 (0.0-0.4) K/mm3 Baso # 0.0 (0.0-0.1) K/mm3 Comprehensive Metabolic Panel 06/18/20 Range/Units 00:41 Sodium 118 L* (137-145) mmol/L Potassium 3.1 L (3.6-5.0) mmol/L Chloride 79.8 L (98-107) mmol/L Carbon Dioxide 22 (22-30) mmol/L BUN 6 L (7-17) mg/dL Creatinine 0.6 (0.6-1.2) mg/dL Glucose 114 H (65-100) mg/dL Calcium 9.6 (8.4-10.2) mg/dL Direct Bilirubin 0.2 (0-0.2) mg/dL Indirect Bilirubin 1.4 mg/dL AST 19 (5-40) units/L ALT 8 (7-56) units/L Alkaline Phosphatase 85 (35-129) units/L Total Protein 7.1 (6.3-8.2) g/dL Albumin 4.4 (3.9-5) g/dL - Imaging and Cardiology Echo: pending, report reviewed (02/2019 showed EF 55-60%, mild TR. ) EKG: report reviewed, image reviewed EKG interpretations - Telemetry EKG Rhythm: Sinus Rhythm - EKG Sinus rhythms and dysrhythmias: sinus rhythm Assessment and Plan Pt is s/p AAA repair in 10/2019. She has been found to have endoleak along the limbs of the endograft. Per vascular team, patient would benefit from diagnostic aortogram with possible endoleak repair which is currently scheduled for tomorrow. Cardiology has been consulted to provide preoperative cardiac risk stratification. Pt denies any cardiac complaints. Currently stable cardiac status. Pt is at moderate cardiovascular risk for contemplated surgery. There are no immediate cardiac contraindications to proceeding with contemplated surgery. Obtain echo. Assessment and plan d/w pt and pt's son via telephone. Will follow. The patient has been seen in conjunction with Dr. Washington Basurto who agrees with the assessment and plan of care. - Patient Problems (1) History of AAA (abdominal aortic aneurysm) repair Current Visit: Yes Status: Acute (2) Abdominal pain Current Visit: Yes Status: Acute Qualifiers: Abdominal location: generalized Qualified Code(s): R10.84 - Generalized abdominal pain (3) Nausea & vomiting Current Visit: Yes Status: Acute Qualifiers: Vomiting type: unspecified Vomiting Intractability: non-intractable Qualified Code(s): R11.2 - Nausea with vomiting, unspecified (4) CAD (coronary artery disease) Current Visit: Yes Status: Chronic Qualifiers: Coronary Disease-Associated Artery/Lesion type: [place] artery [place] vs. transplanted heart: [place] heart Associated angina: with stable angina Qualified Code(s): I25.118 - Atherosclerotic heart disease of [place] coronary artery with other forms of angina pectoris (5) History of coronary artery bypass graft Current Visit: Yes Status: Chronic (6) Hypertension Current Visit: Yes Status: Chronic Qualifiers: Hypertension type: essential hypertension Qualified Code(s): I10 - Essential (primary) hypertension (7) Hyperlipemia, mixed Current Visit: Yes Status: Chronic
[2020-06-18 14:25] LABS: BUN/Creatinine Ratio 8; Blood Urea Nitrogen 5 mg/dL (7-17); Calcium 8.8 mg/dL (8.4-10.2); Hemolysis Index 3
--- NOTE | 2020-06-18 20:44 | Progress Note ---
Assessment and Plan Assessment and plan: -- Abdominal pain Current Visit: Yes Status: Acute Plan to address problem: Pain medications, supportive care --History of abdominal aortic aneurysm repair 10/2019 Current Visit: Yes Status: Acute Plan to address problem: Vascular consulted CT revealed Endo leak along the limbs of the endograft Aortogram and possible endoleak repair tomorrow per vascular. --History of coronary artery disease status post CABG; Current Visit: Yes Status: Acute Continue current cardiac medications management per cardiology --Hypertension Current Visit: Yes Status: Acute Plan to address problem: Moderate control, continue current antihypertensives PRN medications --Hypokalemia Current Visit: Yes Status: Acute Plan to address problem: Replenish with KCl monitor electrolytes -- Hyponatremia Current Visit: Yes Status: Acute Plan to address problem: Follow electrolytes IV normal saline replacement therapy --dyslipidemia Current Visit: Yes Status: Acute Lipid-lowering medications We will closely monitor the patient and adjust management as needed Paper Core Machine Operator recommendations noted and appreciated Plan of care reviewed with the patient and her nurse Advance care 32 minutes History Interval history: I have seen and examined the patient at the bedside Patient's chart current medication list tests reviewed Patient feels slightly better Vascular and cardiology following the patient Vital signs noted Hospitalist Physical - Constitutional Vitals: Temp Pulse Resp BP Pulse Ox 98.0 F 69 18 127/67 96 06/18/20 16:05 06/18/20 16:05 06/18/20 16:05 06/18/20 16:05 06/18/20 16:05 General appearance: Present: no acute distress, well-nourished - EENT Eyes: Present: PERRL, EOM intact - Neck Neck: Present: supple, normal ROM - Respiratory Respiratory effort: normal Respiratory: bilateral: diminished, negative: rales, rhonchi, wheezing - Cardiovascular Rhythm: regular Heart Sounds: Present: S1 & S2 - Extremities Extremities: no ischemia, No edema - Abdominal General gastrointestinal: soft, non-tender, non-distended, normal bowel sounds - Integumentary Integumentary: Present: clear, warm - Psychiatric Psychiatric: appropriate mood/affect, memory intact - Neurologic Neurologic: moves all extremities HEART Score - HEART Score Age: 45-65 Risk factors: 1-2 risk factors Troponin: Troponin T < 0.010 ng/mL (0.00-0.029) 06/18/20 00:41 Troponin: < normal limit - Critical Actions Critical Actions: 0-3 pts:0.9-1.7%risk of adverse cardiac event.Candidate for discharge Results - Labs CBC & Chem 7: 06/18/20 00:41 06/18/20 13:50 Labs: Laboratory Last Values WBC 7.1 K/mm3 (4.5-11.0) 06/18/20 00:41 RBC 4.84 M/mm3 (3.65-5.03) 06/18/20 00:41 Hgb 13.8 gm/dl (10.1-14.3) 06/18/20 00:41 Hct 39.4 % (30.3-42.9) 06/18/20 00:41 MCV 81 fl (79-97) 06/18/20 00:41 MCH 29 pg (28-32) 06/18/20 00:41 MCHC 35 % (30-34) H 06/18/20 00:41 RDW 14.0 % (13.2-15.2) 06/18/20 00:41 Plt Count 243 K/mm3 (140-440) 06/18/20 00:41 Lymph % (Auto) 31.6 % (13.4-35.0) 06/18/20 00:41 [place] % (Auto) 8.3 % (0.0-7.3) H 06/18/20 00:41 Eos % (Auto) 1.4 % (0.0-4.3) 06/18/20 00:41 Baso % (Auto) 0.3 % (0.0-1.8) 06/18/20 00:41 Lymph # 2.3 K/mm3 (1.2-5.4) 06/18/20 00:41 [place] # 0.6 K/mm3 (0.0-0.8) 06/18/20 00:41 Eos # 0.1 K/mm3 (0.0-0.4) 06/18/20 00:41 Baso # 0.0 K/mm3 (0.0-0.1) 06/18/20 00:41 Seg Neutrophils % 58.4 % (40.0-70.0) 06/18/20 00:41 Seg Neutrophils # 4.2 K/mm3 (1.8-7.7) 06/18/20 00:41 Sodium 133 mmol/L (137-145) L D 06/18/20 13:50 Potassium 3.7 mmol/L (3.6-5.0) 06/18/20 13:50 Chloride 98.5 mmol/L (98-107) 06/18/20 13:50 Carbon Dioxide 22 mmol/L (22-30) 06/18/20 13:50 Anion Gap 16 mmol/L 06/18/20 13:50 BUN 5 mg/dL (7-17) L 06/18/20 13:50 Creatinine 0.6 mg/dL (0.6-1.2) 06/18/20 13:50 Estimated GFR > 60 ml/min 06/18/20 13:50 BUN/Creatinine Ratio 8 % 06/18/20 13:50 Glucose 95 mg/dL (65-100) 06/18/20 13:50 Calcium 8.8 mg/dL (8.4-10.2) 06/18/20 13:50 Magnesium 1.70 mg/dL (1.7-2.3) 06/18/20 03:30 Total Bilirubin 1.60 mg/dL (0.1-1.2) H 06/18/20 00:41 Direct Bilirubin 0.2 mg/dL (0-0.2) 06/18/20 00:41 Indirect Bilirubin 1.4 mg/dL 06/18/20 00:41 AST 19 units/L (5-40) 06/18/20 00:41 ALT 8 units/L (7-56) 06/18/20 00:41 Alkaline Phosphatase 85 units/L (35-129) 06/18/20 00:41 Total Creatine Kinase 232 units/L (30-135) H 06/18/20 00:41 Troponin T < 0.010 ng/mL (0.00-0.029) 06/18/20 00:41 Total Protein 7.1 g/dL (6.3-8.2) 06/18/20 00:41 Albumin 4.4 g/dL (3.9-5) 06/18/20 00:41 Albumin/Globulin Ratio 1.6 % 06/18/20 00:41 Urine Color Colorless (Yellow) 06/18/20 Unknown Urine Turbidity Clear (Clear) 06/18/20 Unknown Urine pH 7.0 (5.0-7.0) 06/18/20 Unknown Ur Specific [place] 1.003 (1.003-1.030) 06/18/20 Unknown Urine Protein <15 mg/dl mg/dL (Negative) 06/18/20 Unknown Urine Glucose (UA) Neg mg/dL (Negative) 06/18/20 Unknown Urine Ketones Tr mg/dL (Negative) 06/18/20 Unknown Urine Blood Neg (Negative) 06/18/20 Unknown Urine Nitrite Neg (Negative) 06/18/20 Unknown Urine Bilirubin Neg (Negative) 06/18/20 Unknown Urine Urobilinogen < 2.0 mg/dL (<2.0) 06/18/20 Unknown Ur Leukocyte Esterase Neg (Negative) 06/18/20 Unknown Urine WBC (Auto) < 1.0 /HPF (0.0-6.0) 06/18/20 Unknown Urine RBC (Auto) < 1.0 /HPF (0.0-6.0) 06/18/20 Unknown Vu/IV: Voiding Method Toilet IV Catheter Type [Left Hand] INT / Saline Lock Active Medications - Current Medications Current Medications: Generic Name Dose Route Start Last Admin Trade Name Freq PRN Reason Stop Dose Admin Sodium Chloride 1,000 mls @ 75 mls/hr 06/18/20 05:15 06/18/20 05:46 Nacl 0.9% 1000 Ml IV 75 mls/hr DIRECT DAYANA Administration Morphine Sulfate 2 mg 06/18/20 05:07 06/18/20 18:03 Morphine IV 2 mg Q4H PRN Administration Pain, Moderate (4-6) Ondansetron HCl 4 mg 06/18/20 05:07 Zofran IV Q4H PRN Nausea And Vomiting
--- NOTE | 2020-06-19 10:49 | Anesthesia Day of Surgery ---
Anesthesia Day of Surgery - Day of Surgery Patient Examined: Yes Patient H&P Reviewed: Yes Patient is NPO: Yes Cardiac Clearance: Yes
[2020-06-19] MEDS ORDERED: LIDOCAINE (2%) 20 MG/1 ML VIAL 20 ML MDV INFILTRATI ONE ×2 (11:00→11:02)
[2020-06-19] MEDS ORDERED: HEPARIN 10,000 UNITS/10 ML VIAL ONE (11:00)
[2020-06-19] MEDS ORDERED: HEPARIN/NS 5000 UNIT/500ML 1,000 ML IR ONE (11:00)
[2020-06-19] MEDS ORDERED: ceFAZolin/Water 2 GM/20 ML 2 GM/20 ML SYRINGE IV ONE (11:01)
[2020-06-19] MEDS ORDERED: HYDROmorphone 1 MG/1 ML INJ ONE (11:22)
[2020-06-19] MEDS ORDERED: MIDAZOLAM 2 MG/2 ML INJ ONE (11:22)
[2020-06-19] MEDS ORDERED: propofoL 200 MG/20 ML VIAL IV ONE ×3 (11:22→11:23)
[2020-06-19] MEDS ORDERED: LIDOCAINE MPF (2%) 20 MG/1 ML VIAL 5 ML ONE (11:23)
[2020-06-19] MEDS ORDERED: SODIUM CHLORIDE 0.9% 1000 ML 1,000 ML ONE (11:24)
[2020-06-19] MEDS ORDERED: PROTAMINE SULFATE 50 MG/5 ML INJ ONE (13:05)
--- NOTE | 2020-06-19 13:29 | Post Operative Note ---
Date of procedure: 06/19/20 Pre-op diagnosis: Abdominal Aortic Aneurysm s/p EVAR with Endoleak Post-op diagnosis: same Procedure: 1. Bilateral Femoral Artery Access under Ultrasound Guidance 2. Diagnostic Aortogram with Supervision and Interpretation 3. Abdominal Aorta Extension with 23mm x 3.3cm Emmons Aortic Cuff 4. Right Femoral Artery Closure using Perclose Device Anesthesia: RICHY Surgeon: NEAL BARBOUR Estimated blood loss: other (25ml) Pathology: none Condition: stable Disposition: observation
[2020-06-19] MEDS ORDERED: HYDROcodone/ACETAMINOPHEN 5-325 MG TAB PO PRN (13:31)
[2020-06-19] MEDS ORDERED: ACETAMINOPHEN 325 MG TAB PO PRN (13:31)
[2020-06-19] MEDS ORDERED: SODIUM CHLORIDE 0.9% 1000 ML 1,000 ML IV SCH ×2 (13:45→19:32)
--- NOTE | 2020-06-19 14:09 | Operative Report ---
STAFF SURGEON: Dr. Saud Hills. PREOPERATIVE DIAGNOSIS: Infrarenal abdominal aortic aneurysm, status post endovascular aneurysm repair with endoleak. POSTOPERATIVE DIAGNOSIS: Infrarenal abdominal aortic aneurysm, status post endovascular aneurysm repair with endoleak. PROCEDURES PERFORMED: 1. Bilateral femoral artery access under ultrasound guidance. 2. Diagnostic aortogram with supervision and interpretation. 3. Abdominal aortic extension with 23 mm x 3.3 cm Veblen aortic cuff. 4. Right femoral artery closure using Perclose device. COMPLICATIONS: None. ANESTHESIA: Deep sedation. COMPLICATIONS: None. ESTIMATED BLOOD LOSS: 25 mL. INDICATIONS FOR PROCEDURE: This is a 65-year-old female who had an endovascular aortic aneurysm repair performed in 09/2019 at [facility] who presented to [facility]'s Emergency Department with acute onset of generalized infraumbilical abdominal pain. The patient had a CT scan with IV contrast, which demonstrated a large endoleak in the patient's aneurysm sac. Due to the patient's presentation and findings on CT scan, it was felt that the patient would benefit from diagnostic aortogram with possible intervention for her endoleak. The patient was explained the risks, benefits, alternatives of the procedure, expressed understanding and wished to proceed. DESCRIPTION OF PROCEDURE: After appropriate consent was obtained, the patient was brought back to the excavation laborer, placed on the table in a supine position. The patient was given appropriate medication for deep sedation by anesthesia. Both groins were prepped and draped in the usual sterile fashion with ChloraPrep. Appropriate timeout was performed after appropriate preoperative antibiotics were administered, indicating the correct patient, procedure, and site of procedure. We then began the operation by obtaining percutaneous access of both common femoral arteries using a micropuncture technique under ultrasound guidance. Once we obtained access, needle was exchanged for a micropuncture sheath using Seldinger technique and then was upsized to a 6-Norwegian sheath bilaterally over a stiff J-wire. In the right access, we then proceeded to place a short Bentson wire into the infrarenal aorta. The 6-Norwegian sheath was removed and 2 Perclose devices were then deployed in a medial and lateral fashion which deployed adequately and then we upsized to an 8-Norwegian sheath. We then proceeded to advance the short Bentson into the thoracic aorta and then exchanged the Bentson for a 7 cm tip Amplatz wire using an angled vertebral catheter. The patient was given unfractionated heparin intravenously and ACTs were obtained throughout the remainder of the case for adequate anticoagulation. We then proceeded to place a Glidewire through our left femoral access into the infrarenal aorta and then an Omniflush catheter was placed over the wire into the infrarenal aorta. The wire was removed. The catheter was hooked to a power injector and a diagnostic aortogram was performed, which demonstrated that the endoleak which was seen on the preop CAT scan was likely an iliolumbar branch causing the type 2 endoleak. In addition, there was an approximately 1 cm gap from the top of the aortic stent and the lowest renal. With this, it was felt appropriate to extend the stent proximally to just below the renals and so the 8-Norwegian sheath on the right was then exchanged for a 16-Norwegian sheath over the Amplatz wire and was advanced to just below the renal arteries. Then, a 23 mm x 3.3 cm Veblen aortic cuff was then placed just below the renals and deployed adequately. A Q50 balloon was then used to inflate at the level of the aortic cuff and a diagnostic aortogram was performed demonstrating the cuff was deployed adequately just below the renals with adequate overlap with the existing stent. I then proceeded to perform diagnostic angiograms from both limbs, which was unable to demonstrate any evidence of a type 3 endoleak and there was adequate coverage into both common iliac arteries. With this, we then proceeded to administer protamine for heparinization reversal. We also proceeded to remove the 16-Norwegian sheath on the right over the Amplatz wire and deployed the Prolene sutures from the previously placed Perclose which both deployed adequately. The Amplatz wire was removed. Once the sutures were cut, we then proceeded to hold pressure, digital compression until hemostasis was obtained. Once we were satisfied with hemostasis obtained, closed stab incision with a 4-0 Monocryl suture and Dermabond dressing. On the left groin, the Glidewire was placed in order to remove the Omniflush catheter over the wire as both were removed simultaneously and then a Mynx closure device was then used to close the left femoral access again which deployed adequately. Again, digital compression was held at the access site for hemostasis. Once we were satisfied with hemostasis, appropriate dressing was placed. The patient tolerated the procedure well, emerged from the deep sedation and was sent to recovery in stable condition. All the sponges, instrument and needle counts were correct at completion of the operation. JOB# [id number] VCN/NTS
--- NOTE | 2020-06-19 14:21 | Post Anesthesia Evaluation ---
- Post Anesthesia Evaluation Patient Participated: Yes Airway Patent: Yes Stable Respiratory Function: Yes Nausea/Vomiting: No Temp > 96.8F: Yes Pain Manageable: Yes Adequeate Hydration: Yes Anesthesia Complications: No Other Comments: A-line to be removed prior to transfer.
--- NOTE | 2020-06-19 15:08 | Progress Note ---
Assessment and Plan S/p aortogram with abdominal aorta extension this AM. tte reviewed - EF 55-60%, diastolic dysfunction. Currently stable cardiac status. Cont home cardiac regimen. Nothing further to add from cardiac perspective at this time. Will sign off. Recommend pt follow up in our office with Dr. Valdivia within 2 weeks of discharge ([phone]). The patient has been seen in conjunction with Dr. Washington Basurto who agrees with the assessment and plan of care. - Patient Problems (1) History of AAA (abdominal aortic aneurysm) repair Current Visit: Yes Status: Acute (2) Abdominal pain Current Visit: Yes Status: Acute Qualifiers: Abdominal location: generalized Qualified Code(s): R10.84 - Generalized abdominal pain (3) Nausea & vomiting Current Visit: Yes Status: Acute Qualifiers: Vomiting type: unspecified Vomiting Intractability: non-intractable Qualified Code(s): R11.2 - Nausea with vomiting, unspecified (4) CAD (coronary artery disease) Current Visit: Yes Status: Chronic Qualifiers: Coronary Disease-Associated Artery/Lesion type: [place] artery [place] vs. transplanted heart: [place] heart Associated angina: with stable angina Qualified Code(s): I25.118 - Atherosclerotic heart disease of [place] coronary artery with other forms of angina pectoris (5) History of coronary artery bypass graft Current Visit: Yes Status: Chronic (6) Hypertension Current Visit: Yes Status: Chronic Qualifiers: Hypertension type: essential hypertension Qualified Code(s): I10 - Essential (primary) hypertension (7) Hyperlipemia, mixed Current Visit: Yes Status: Chronic Subjective Date of service: 06/19/20 Principal diagnosis: abdominal pain Interval history: pt seen s/p procedure today, no current cardiac complaints. in SR on tele. Objective Last Vital Signs Temp 97.5 F L 06/19/20 13:30 Pulse 47 L 06/19/20 14:30 Resp 16 06/19/20 14:30 BP 155/67 06/19/20 14:30 Pulse Ox 98 06/19/20 14:30 - Physical Examination General: No Apparent Distress HEENT: Positive: PERRL, Normocephaly, Mucus Membranes Moist Neck: Positive: neck supple, trachea midline Cardiac: Positive: Reg Rate and Rhythm, S1/S2 Lungs: Positive: Decreased Breath Sounds Neuro: Positive: Grossly Intact Abdomen: Negative: Tender Skin: Negative: Rash Musculoskeletal: No Pain Extremities: Absent: edema - Imaging and Cardiology EKG: report reviewed, image reviewed Echo: pending, report reviewed (02/2019 showed EF 55-60%, mild TR. ) - EKG Sinus rhythms and dysrhythmias: sinus rhythm
[2020-06-19 16:50] LABS: Basophils % (Auto) 0.2 % (0.0-1.8); Eosinophils % (Auto) 0.2 % (0.0-4.3); Hematocrit 39.2 % (30.3-42.9); Hemoglobin 13.1 gm/dl (10.1-14.3); Lymphocytes # (Auto) 1.5 K/mm3 (1.2-5.4); Lymphocytes % (Auto) 19.5 % (13.4-35.0); Mean Corpuscular HGB Conc 33 % (30-34); Mean Corpuscular Volume 84 fl (79-97); Monocytes # (Auto) 0.4 K/mm3 (0.0-0.8); Monocytes % (Auto) 4.9 % (0.0-7.3); Platelet Count 249 K/mm3 (140-440); Red Blood Count 4.66 M/mm3 (3.65-5.03); Red Cell Distribution Width 14.6 % (13.2-15.2)
[2020-06-19 17:05] LABS: Blood Urea Nitrogen 11 mg/dL (7-17); Calcium 8.6 mg/dL (8.4-10.2); Hemolysis Index 12
[2020-06-19 17:06] LABS: BUN/Creatinine Ratio 22
[2020-06-19] MEDS: ceFAZolin/NS 1 GM/50 ML 1 GM/50 ML BAG IV SCH ×2 (18:10→21:20)
--- NOTE | 2020-06-19 21:26 | Progress Note ---
Assessment and Plan Assessment and plan: Patient underwent vascular procedure today Aortogram and possible endoleak repair today 1. Bilateral Femoral Artery Access under Ultrasound Guidance 2. Diagnostic Aortogram with Supervision and Interpretation 3. Abdominal Aorta Extension with 23mm x 3.3cm [place] Aortic Cuff 4. Right Femoral Artery Closure using Perclose Device Continue supportive care --History of abdominal aortic aneurysm repair 10/2019 Current Visit: Yes Status: Acute Plan to address problem: Vascular following CT revealed Endo leak along the limbs of the endograft s/p Aortogram and possible endoleak -- Abdominal pain Current Visit: Yes Status: Acute Plan to address problem: Pain medications, supportive care --History of coronary artery disease status post CABG; Current Visit: Yes Status: Acute Continue current cardiac medications management per cardiology --Hypertension Current Visit: Yes Status: Acute Plan to address problem: Moderate control, continue current antihypertensives PRN medications --Hypokalemia Current Visit: Yes Status: Acute Plan to address problem: Replenish with KCl monitor electrolytes -- Hyponatremia Current Visit: Yes Status: Acute Plan to address problem: Follow electrolytes IV normal saline replacement therapy --dyslipidemia Current Visit: Yes Status: Acute Lipid-lowering medications Monitor closely and adjust management as needed History Interval history: I have seen and examined the patient at the bedside Patient returned from [employer] after vascular procedure Communicated with bilingual staff member briefly Patient complains of some pain Alert and awake Vital signs reviewed Hospitalist Physical - Constitutional Vitals: Temp Pulse Resp BP Pulse Ox 98.0 F 60 16 137/60 96 06/19/20 19:28 06/19/20 19:28 06/19/20 19:28 06/19/20 19:28 06/19/20 19:28 General appearance: Present: no acute distress, well-nourished - EENT Eyes: Present: PERRL, EOM intact - Neck Neck: Present: supple, normal ROM - Respiratory Respiratory effort: normal Respiratory: bilateral: diminished, negative: rales, rhonchi, wheezing - Cardiovascular Rhythm: regular Heart Sounds: Present: S1 & S2 - Extremities Extremities: no ischemia, No edema - Abdominal General gastrointestinal: soft, non-tender, non-distended, normal bowel sounds - Integumentary Integumentary: Present: clear, warm - Psychiatric Psychiatric: appropriate mood/affect, cooperative - Neurologic Neurologic: CNII-XII intact, moves all extremities HEART Score - HEART Score Age: 45-65 Risk factors: 1-2 risk factors Troponin: Troponin T < 0.010 ng/mL (0.00-0.029) 06/18/20 00:41 Troponin: < normal limit - Critical Actions Critical Actions: 0-3 pts:0.9-1.7%risk of adverse cardiac event.Candidate for discharge Results - Labs CBC & Chem 7: 06/19/20 15:54 06/19/20 15:54 Labs: Laboratory Last Values WBC 7.6 K/mm3 (4.5-11.0) 06/19/20 15:54 RBC 4.66 M/mm3 (3.65-5.03) 06/19/20 15:54 Hgb 13.1 gm/dl (10.1-14.3) 06/19/20 15:54 Hct 39.2 % (30.3-42.9) 06/19/20 15:54 MCV 84 fl (79-97) 06/19/20 15:54 MCH 28 pg (28-32) 06/19/20 15:54 MCHC 33 % (30-34) 06/19/20 15:54 RDW 14.6 % (13.2-15.2) 06/19/20 15:54 Plt Count 249 K/mm3 (140-440) 06/19/20 15:54 Lymph % (Auto) 19.5 % (13.4-35.0) 06/19/20 15:54 [place] % (Auto) 4.9 % (0.0-7.3) 06/19/20 15:54 Eos % (Auto) 0.2 % (0.0-4.3) 06/19/20 15:54 Baso % (Auto) 0.2 % (0.0-1.8) 06/19/20 15:54 Lymph # 1.5 K/mm3 (1.2-5.4) 06/19/20 15:54 [place] # 0.4 K/mm3 (0.0-0.8) 06/19/20 15:54 Eos # 0.0 K/mm3 (0.0-0.4) 06/19/20 15:54 Baso # 0.0 K/mm3 (0.0-0.1) 06/19/20 15:54 Seg Neutrophils % 75.2 % (40.0-70.0) H 06/19/20 15:54 Seg Neutrophils # 5.7 K/mm3 (1.8-7.7) 06/19/20 15:54 Sodium 137 mmol/L (137-145) 06/19/20 15:54 Potassium 3.2 mmol/L (3.6-5.0) L 06/19/20 15:54 Chloride 105.7 mmol/L (98-107) 06/19/20 15:54 Carbon Dioxide 16 mmol/L (22-30) L 06/19/20 15:54 Anion Gap 19 mmol/L 06/19/20 15:54 BUN 11 mg/dL (7-17) 06/19/20 15:54 Creatinine 0.5 mg/dL (0.6-1.2) L 06/19/20 15:54 Estimated GFR > 60 ml/min 06/19/20 15:54 BUN/Creatinine Ratio 22 % 06/19/20 15:54 Glucose 101 mg/dL (65-100) H 06/19/20 15:54 POC Glucose 83 (70-105) 06/19/20 07:53 Calcium 8.6 mg/dL (8.4-10.2) 06/19/20 15:54 Magnesium 1.70 mg/dL (1.7-2.3) 06/18/20 03:30 Total Bilirubin 1.60 mg/dL (0.1-1.2) H 06/18/20 00:41 Direct Bilirubin 0.2 mg/dL (0-0.2) 06/18/20 00:41 Indirect Bilirubin 1.4 mg/dL 06/18/20 00:41 AST 19 units/L (5-40) 06/18/20 00:41 ALT 8 units/L (7-56) 06/18/20 00:41 Alkaline Phosphatase 85 units/L (35-129) 06/18/20 00:41 Total Creatine Kinase 232 units/L (30-135) H 06/18/20 00:41 Troponin T < 0.010 ng/mL (0.00-0.029) 06/18/20 00:41 Total Protein 7.1 g/dL (6.3-8.2) 06/18/20 00:41 Albumin 4.4 g/dL (3.9-5) 06/18/20 00:41 Albumin/Globulin Ratio 1.6 % 06/18/20 00:41 Urine Color Colorless (Yellow) 06/18/20 Unknown Urine Turbidity Clear (Clear) 06/18/20 Unknown Urine pH 7.0 (5.0-7.0) 06/18/20 Unknown Ur Specific [place] 1.003 (1.003-1.030) 06/18/20 Unknown Urine Protein <15 mg/dl mg/dL (Negative) 06/18/20 Unknown Urine Glucose (UA) Neg mg/dL (Negative) 06/18/20 Unknown Urine Ketones Tr mg/dL (Negative) 06/18/20 Unknown Urine Blood Neg (Negative) 06/18/20 Unknown Urine Nitrite Neg (Negative) 06/18/20 Unknown Urine Bilirubin Neg (Negative) 06/18/20 Unknown Urine Urobilinogen < 2.0 mg/dL (<2.0) 06/18/20 Unknown Ur Leukocyte Esterase Neg (Negative) 06/18/20 Unknown Urine WBC (Auto) < 1.0 /HPF (0.0-6.0) 06/18/20 Unknown Urine RBC (Auto) < 1.0 /HPF (0.0-6.0) 06/18/20 Unknown Blood Type O POSITIVE 06/19/20 16:00 Antibody Screen Negative 06/19/20 16:00 Crossmatch See Detail 06/19/20 16:00 - Diagnostic Impressions Diagnostic Impressions: Echocardiogram 06/18/20 06:11 Transthoracic Echocardiogram Indication: Bradycardia BP: 147/69 HR: 52 Conclusions *Global left ventricular systolic function is normal. *The estimated ejection fraction is 55-60%. *There is an E to A reversal in the mitral valve flow pattern suggestive of diastolic dysfunction. *The pericardium appears normal. Findings Procedure Info: The study quality is fair. Breathing interference throughout exam. Left Ventricle: The left ventricular chamber size is normal. Global left ventricular systolic function is normal. The estimated ejection fraction is 55-60%. There is an E to A reversal in the mitral valve flow pattern suggestive of diastolic dysfunction. Left Atrium: The left atrial chamber size is normal. Right Ventricle: The right ventricular cavity size is normal. Right Atrium: The right atrial cavity size is normal. Aortic Valve: The aortic valve is trileaflet. Mitral Valve: The mitral valve leaflets appear normal. Tricuspid Valve: The tricuspid valve appears normal in structure and function. There is mild tricuspid regurgitation. Pulmonic Valve: The pulmonic valve appears normal. There is mild pulmonic regurgitation. Pericardium: The pericardium appears normal. Aorta: The aorta appears normal. Venous: The inferior vena cava appears normal in size. Measurements Chambers 2D Name Value Normal Range IVSd (2D) 0.76 cm (0.6 - 1.1) LVPWd (2D) 0.91 cm (0.6 - 1.1) LVIDd (2D) 4.8 cm (3.7 - 5.6) LVIDs (2D) 3.07 cm (2 - 3.8) LV FS (2D) 36.13 % - EF Teichholz (2D) 65.68 % - Ao root diameter (2D) 2.11 cm (2 - 3.7) Volumes/Mass Name Value Normal Range LA ESV SP 4CH (A/L) 44.65 ml - LA ESV SP 2CH (A/L) 44.04 ml - LA ESV BP (A/L) 46.73 ml - LA ESV SP 4CH (MOD) 41.87 ml - LA ESV SP 2CH (MOD) 41.18 ml - LV EDV SP 4CH (MOD) 67.61 ml - LV ESV SP 4CH (MOD) 23.58 ml - EF SP 4CH (MOD) 65.12 % - LV EDV SP 2CH (MOD) 102.68 ml - LV ESV SP 2CH (MOD) 42.56 ml - EF SP 2CH (MOD) 58.54 % - LV EDV BP 84.76 ml - LV ESV BP 33.65 ml - BP EF (MOD) 60 % - Diastolic/Systolic Function Name Value Normal Range MV E-wave Vmax 0.69 m/sec - MV deceleration time 274.41 msec - MV A-wave Vmax 1.22 m/sec - MV E:A ratio 0.57 ratio - Aortic Valve Name Value Normal Range AV Vmax 1.58 m/sec - AV VTI 24.03 cm - AV peak gradient 9.94 mmHg - AV mean gradient 3.1 mmHg - LVOT diameter 1.99 cm - LVOT Vmax 1.19 m/sec - LVOT VTI 22.17 cm - LVOT peak gradient 5.66 mmHg - LVOT mean gradient 1.8 mmHg - SV LVOT 69.04 ml - MARCO ANTONIO (continuity Vmax) 2.35 cm2 - MARCO ANTONIO (continuity VTI) 2.87 cm2 - Ascending Ao 2.51 cm - Tricuspid Valve Name Value Normal Range TR Vmax 1.81 m/sec - TR peak gradient 13.08 mmHg - IVC diameter 1.41 cm (1.2 - 2.3) Pulmonic Valve/Qp:Qs Name Value Normal Range PV Vmax 1.25 m/sec - PV VTI 27.54 cm - PV peak gradient 6.26 mmHg - PV mean gradient 2.64 mmHg - RI end-diastolic Vmax 0.66 m/sec - RVOT Vmax 0.86 m/sec - RVOT VTI 16.63 cm - RVOT peak gradient 2.94 mmHg - Vu/IV: Voiding Method Toilet IV Catheter Type [Left Hand] INT / Saline Lock Active Medications - Current Medications Current Medications: Generic Name Dose Route Start Last Admin Trade Name Freq PRN Reason Stop Dose Admin Acetaminophen 650 mg 06/19/20 13:31 Tylenol PO Q4H PRN Pain MILD(1-3)/Fever >100.5/GOMEZ Acetaminophen/Hydrocodone Bitart 1 each 06/19/20 13:31 [place] 5/325 PO Q6H PRN Pain, Moderate (4-6) Sodium Chloride 1,000 mls @ 75 mls/hr 06/18/20 05:15 06/18/20 21:31 Nacl 0.9% 1000 Ml IV 75 mls/hr DIRECT DAYANA Administration Sodium Chloride 1,000 mls @ 75 mls/hr 06/19/20 19:32 Nacl 0.9% 1000 Ml IV 06/20/20 08:51 DIRECT DAYANA Cefazolin Sodium 1 gm in 50 mls @ 100 mls/hr 06/19/20 14:00 06/19/20 21:20 Ancef/Ns 1 Gm/50 Ml IV 06/19/20 22:29 100 mls/hr Q8H DAYANA Administration Morphine Sulfate 2 mg 06/18/20 05:07 06/18/20 18:03 Morphine IV 2 mg Q4H PRN Administration Pain, Moderate (4-6) Ondansetron HCl 4 mg 06/18/20 05:07 Zofran IV Q4H PRN Nausea And Vomiting
[2020-06-20] MEDS: SODIUM CHLORIDE 0.9% 1000 ML 1,000 ML IV SCH (04:48)
[2020-06-20 07:33] LABS: Hematocrit 34.6 % (30.3-42.9); Hemoglobin 12.2 gm/dl (10.1-14.3)
--- NOTE | 2020-06-20 11:13 | Progress Note ---
Subjective Date of service: 06/20/20 Principal diagnosis: abdominal pain Interval history: Status post diagnostic aortogram with aortic cuff extension Patient doing well and states that her abdominal pain is much improved Hemodynamically stable Regular rate and rhythm Non-labored respirations Abdomen soft nontender nondistended with no palpable masses 2+ femoral pulses bilaterally, no pulsatile masses noted in the groin Both feet are warm and well-perfused Patient was noted to have a type II endoleak that was not addressed during recent procedure, this can be addressed as an outpatient Given symptoms have resolved patient can be discharged from my standpoint once medically stable and follow-up in 1 to 2 weeks Objective - Constitutional Vitals: Vital Signs - 12hr 06/20/20 06/20/20 06/20/20 03:24 06:00 07:23 Temperature 98.2 F 98.4 F Pulse Rate 55 L 55 L 58 L Respiratory 16 20 Rate Blood Pressure 153/60 172/74 O2 Sat by Pulse 97 97 Oximetry 06/20/20 08:28 Temperature Pulse Rate Respiratory 18 Rate Blood Pressure O2 Sat by Pulse Oximetry - Labs CBC & Chem 7: 06/20/20 07:02 06/19/20 15:54 Labs: Abnormal lab results 06/19/20 06/19/20 06/19/20 Range/Units 15:54 15:54 16:00 Seg Neutrophils % 75.2 H (40.0-70.0) % Potassium 3.2 L (3.6-5.0) mmol/L Carbon Dioxide 16 L (22-30) mmol/L Creatinine 0.5 L (0.6-1.2) mg/dL Glucose 101 H (65-100) mg/dL Crossmatch See Detail Medications & Allergies - Medications Allergies/Adverse Reactions: Allergies aspirin Allergy (Verified 06/18/20 03:42) Unknown Home Medications: Home Medications Medication Instructions Recorded Confirmed Last Taken Type Aspirin [Adult Low Dose Aspirin EC] 81 mg PO DAILY 02/07/19 06/20/20 2 Days Ago History ~06/18/20 AtorvaSTATin [Lipitor] 20 mg PO QHS #30 tab 02/07/19 06/20/20 2 Days Ago Rx ~06/18/20 Fenofibrate Nanocrystallized 145 mg PO DAILY 02/07/19 06/20/20 2 Days Ago History [Fenofibrate] ~06/18/20 Hydralazine HCl 50 mg PO BID 02/07/19 06/20/20 2 Days Ago History ~06/18/20 ISOSORBIDE MONOnitrate [Imdur ER] 30 mg PO DAILY 02/07/19 06/20/20 2 Days Ago History ~06/18/20 hydroCHLOROthiazide 12.5 mg PO DAILY 02/07/19 06/20/20 2 Days Ago History [Hydrochlorothiazide] ~06/18/20 Active Medications: Generic Name Dose Route Start Last Admin Trade Name Freq PRN Reason Stop Dose Admin Acetaminophen 650 mg 06/19/20 13:31 Tylenol PO Q4H PRN Pain MILD(1-3)/Fever >100.5/GOMEZ Acetaminophen/Hydrocodone Bitart 1 each 06/19/20 13:31 [place] 5/325 PO Q6H PRN Pain, Moderate (4-6) Sodium Chloride 1,000 mls @ 75 mls/hr 06/18/20 05:15 06/20/20 04:48 Nacl 0.9% 1000 Ml IV 75 mls/hr DIRECT DAYANA Administration Morphine Sulfate 2 mg 06/18/20 05:07 06/18/20 18:03 Morphine IV 2 mg Q4H PRN Administration Pain, Moderate (4-6) Ondansetron HCl 4 mg 06/18/20 05:07 Zofran IV Q4H PRN Nausea And Vomiting HEART Score - HEART Score Age: 45-65 Risk factors: 1-2 risk factors Troponin: Troponin T < 0.010 ng/mL (0.00-0.029) 06/18/20 00:41 Troponin: < normal limit - Critical Actions Critical Actions: 0-3 pts:0.9-1.7%risk of adverse cardiac event.Candidate for discharge
--- NOTE | 2020-06-20 12:07 | Progress Note ---
Assessment and Plan Assessment and plan: Status post diagnostic aortogram with aortic cuff extension Patient underwent vascular procedure today Aortogram and possible endoleak repair today 1. Bilateral Femoral Artery Access under Ultrasound Guidance 2. Diagnostic Aortogram with Supervision and Interpretation 3. Abdominal Aorta Extension with 23mm x 3.3cm [place] Aortic Cuff 4. Right Femoral Artery Closure using Perclose Device Continue supportive care --History of abdominal aortic aneurysm repair 10/2019 Current Visit: Yes Status: Acute Plan to address problem: Vascular following CT revealed Endo leak along the limbs of the endograft s/p Aortogram and possible endoleak -- Abdominal pain Current Visit: Yes Status: Acute Plan to address problem: Pain medications, supportive care --History of coronary artery disease status post CABG; Current Visit: Yes Status: Acute Continue current cardiac medications management per cardiology --Hypertension Current Visit: Yes Status: Acute Plan to address problem: Moderate control, continue current antihypertensives PRN medications --Hypokalemia Current Visit: Yes Status: Acute Plan to address problem: Replenish with KCl monitor electrolytes -- Hyponatremia Current Visit: Yes Status: Acute Plan to address problem: Follow electrolytes IV normal saline replacement therapy --dyslipidemia Current Visit: Yes Status: Acute Lipid-lowering medications Monitor closely and adjust management as needed Out of bed to chair Ambulate as tolerated Possible discharge home tomorrow if stable History Interval history: I have seen and examined the patient Patient's chart and medications reviewed Patient feels better no new complaints Vital signs noted Hospitalist Physical - Constitutional Vitals: Temp Pulse Resp BP Pulse Ox 98.4 F 58 L 18 172/74 97 06/20/20 07:23 06/20/20 07:23 06/20/20 08:28 06/20/20 07:23 06/20/20 07:23 General appearance: Present: no acute distress, well-nourished - EENT Eyes: Present: PERRL, EOM intact - Neck Neck: Present: supple, normal ROM - Respiratory Respiratory effort: normal Respiratory: bilateral: diminished, negative: rales, rhonchi, wheezing - Cardiovascular Rhythm: regular Heart Sounds: Present: S1 & S2 - Extremities Extremities: no ischemia, No edema - Abdominal General gastrointestinal: soft, non-tender, non-distended, normal bowel sounds - Integumentary Integumentary: Present: clear, warm - Psychiatric Psychiatric: appropriate mood/affect, cooperative - Neurologic Neurologic: moves all extremities HEART Score - HEART Score Age: 45-65 Risk factors: 1-2 risk factors Troponin: Troponin T < 0.010 ng/mL (0.00-0.029) 06/18/20 00:41 Troponin: < normal limit - Critical Actions Critical Actions: 0-3 pts:0.9-1.7%risk of adverse cardiac event.Candidate for discharge Results - Labs CBC & Chem 7: 06/20/20 07:02 06/19/20 15:54 Labs: Laboratory Last Values WBC 7.6 K/mm3 (4.5-11.0) 06/19/20 15:54 RBC 4.66 M/mm3 (3.65-5.03) 06/19/20 15:54 Hgb 12.2 gm/dl (10.1-14.3) 06/20/20 07:02 Hct 34.6 % (30.3-42.9) 06/20/20 07:02 MCV 84 fl (79-97) 06/19/20 15:54 MCH 28 pg (28-32) 06/19/20 15:54 MCHC 33 % (30-34) 06/19/20 15:54 RDW 14.6 % (13.2-15.2) 06/19/20 15:54 Plt Count 249 K/mm3 (140-440) 06/19/20 15:54 Lymph % (Auto) 19.5 % (13.4-35.0) 06/19/20 15:54 [place] % (Auto) 4.9 % (0.0-7.3) 06/19/20 15:54 Eos % (Auto) 0.2 % (0.0-4.3) 06/19/20 15:54 Baso % (Auto) 0.2 % (0.0-1.8) 06/19/20 15:54 Lymph # 1.5 K/mm3 (1.2-5.4) 06/19/20 15:54 [place] # 0.4 K/mm3 (0.0-0.8) 06/19/20 15:54 Eos # 0.0 K/mm3 (0.0-0.4) 06/19/20 15:54 Baso # 0.0 K/mm3 (0.0-0.1) 06/19/20 15:54 Seg Neutrophils % 75.2 % (40.0-70.0) H 06/19/20 15:54 Seg Neutrophils # 5.7 K/mm3 (1.8-7.7) 06/19/20 15:54 Sodium 137 mmol/L (137-145) 06/19/20 15:54 Potassium 3.2 mmol/L (3.6-5.0) L 06/19/20 15:54 Chloride 105.7 mmol/L (98-107) 06/19/20 15:54 Carbon Dioxide 16 mmol/L (22-30) L 06/19/20 15:54 Anion Gap 19 mmol/L 06/19/20 15:54 BUN 11 mg/dL (7-17) 06/19/20 15:54 Creatinine 0.5 mg/dL (0.6-1.2) L 06/19/20 15:54 Estimated GFR > 60 ml/min 06/19/20 15:54 BUN/Creatinine Ratio 22 % 06/19/20 15:54 Glucose 101 mg/dL (65-100) H 06/19/20 15:54 POC Glucose 83 (70-105) 06/19/20 07:53 Calcium 8.6 mg/dL (8.4-10.2) 06/19/20 15:54 Magnesium 1.70 mg/dL (1.7-2.3) 06/18/20 03:30 Total Bilirubin 1.60 mg/dL (0.1-1.2) H 06/18/20 00:41 Direct Bilirubin 0.2 mg/dL (0-0.2) 06/18/20 00:41 Indirect Bilirubin 1.4 mg/dL 06/18/20 00:41 AST 19 units/L (5-40) 06/18/20 00:41 ALT 8 units/L (7-56) 06/18/20 00:41 Alkaline Phosphatase 85 units/L (35-129) 06/18/20 00:41 Total Creatine Kinase 232 units/L (30-135) H 06/18/20 00:41 Troponin T < 0.010 ng/mL (0.00-0.029) 06/18/20 00:41 Total Protein 7.1 g/dL (6.3-8.2) 06/18/20 00:41 Albumin 4.4 g/dL (3.9-5) 06/18/20 00:41 Albumin/Globulin Ratio 1.6 % 06/18/20 00:41 Urine Color Colorless (Yellow) 06/18/20 Unknown Urine Turbidity Clear (Clear) 06/18/20 Unknown Urine pH 7.0 (5.0-7.0) 06/18/20 Unknown Ur Specific [place] 1.003 (1.003-1.030) 06/18/20 Unknown Urine Protein <15 mg/dl mg/dL (Negative) 06/18/20 Unknown Urine Glucose (UA) Neg mg/dL (Negative) 06/18/20 Unknown Urine Ketones Tr mg/dL (Negative) 06/18/20 Unknown Urine Blood Neg (Negative) 06/18/20 Unknown Urine Nitrite Neg (Negative) 06/18/20 Unknown Urine Bilirubin Neg (Negative) 06/18/20 Unknown Urine Urobilinogen < 2.0 mg/dL (<2.0) 06/18/20 Unknown Ur Leukocyte Esterase Neg (Negative) 06/18/20 Unknown Urine WBC (Auto) < 1.0 /HPF (0.0-6.0) 06/18/20 Unknown Urine RBC (Auto) < 1.0 /HPF (0.0-6.0) 06/18/20 Unknown Blood Type O POSITIVE 06/19/20 16:00 Antibody Screen Negative 06/19/20 16:00 Crossmatch See Detail 06/19/20 16:00 - Diagnostic Impressions Diagnostic Impressions: Echocardiogram 06/18/20 06:11 Transthoracic Echocardiogram Indication: Bradycardia BP: 147/69 HR: 52 Conclusions *Global left ventricular systolic function is normal. *The estimated ejection fraction is 55-60%. *There is an E to A reversal in the mitral valve flow pattern suggestive of diastolic dysfunction. *The pericardium appears normal. Findings Procedure Info: The study quality is fair. Breathing interference throughout exam. Left Ventricle: The left ventricular chamber size is normal. Global left ventricular systolic function is normal. The estimated ejection fraction is 55-60%. There is an E to A reversal in the mitral valve flow pattern suggestive of diastolic dysfunction. Left Atrium: The left atrial chamber size is normal. Right Ventricle: The right ventricular cavity size is normal. Right Atrium: The right atrial cavity size is normal. Aortic Valve: The aortic valve is trileaflet. Mitral Valve: The mitral valve leaflets appear normal. Tricuspid Valve: The tricuspid valve appears normal in structure and function. There is mild tricuspid regurgitation. Pulmonic Valve: The pulmonic valve appears normal. There is mild pulmonic regurgitation. Pericardium: The pericardium appears normal. Aorta: The aorta appears normal. Venous: The inferior vena cava appears normal in size. Measurements Chambers 2D Name Value Normal Range IVSd (2D) 0.76 cm (0.6 - 1.1) LVPWd (2D) 0.91 cm (0.6 - 1.1) LVIDd (2D) 4.8 cm (3.7 - 5.6) LVIDs (2D) 3.07 cm (2 - 3.8) LV FS (2D) 36.13 % - EF Teichholz (2D) 65.68 % - Ao root diameter (2D) 2.11 cm (2 - 3.7) Volumes/Mass Name Value Normal Range LA ESV SP 4CH (A/L) 44.65 ml - LA ESV SP 2CH (A/L) 44.04 ml - LA ESV BP (A/L) 46.73 ml - LA ESV SP 4CH (MOD) 41.87 ml - LA ESV SP 2CH (MOD) 41.18 ml - LV EDV SP 4CH (MOD) 67.61 ml - LV ESV SP 4CH (MOD) 23.58 ml - EF SP 4CH (MOD) 65.12 % - LV EDV SP 2CH (MOD) 102.68 ml - LV ESV SP 2CH (MOD) 42.56 ml - EF SP 2CH (MOD) 58.54 % - LV EDV BP 84.76 ml - LV ESV BP 33.65 ml - BP EF (MOD) 60 % - Diastolic/Systolic Function Name Value Normal Range MV E-wave Vmax 0.69 m/sec - MV deceleration time 274.41 msec - MV A-wave Vmax 1.22 m/sec - MV E:A ratio 0.57 ratio - Aortic Valve Name Value Normal Range AV Vmax 1.58 m/sec - AV VTI 24.03 cm - AV peak gradient 9.94 mmHg - AV mean gradient 3.1 mmHg - LVOT diameter 1.99 cm - LVOT Vmax 1.19 m/sec - LVOT VTI 22.17 cm - LVOT peak gradient 5.66 mmHg - LVOT mean gradient 1.8 mmHg - SV LVOT 69.04 ml - MARCO ANTONIO (continuity Vmax) 2.35 cm2 - MARCO ANTONIO (continuity VTI) 2.87 cm2 - Ascending Ao 2.51 cm - Tricuspid Valve Name Value Normal Range TR Vmax 1.81 m/sec - TR peak gradient 13.08 mmHg - IVC diameter 1.41 cm (1.2 - 2.3) Pulmonic Valve/Qp:Qs Name Value Normal Range PV Vmax 1.25 m/sec - PV VTI 27.54 cm - PV peak gradient 6.26 mmHg - PV mean gradient 2.64 mmHg - CO end-diastolic Vmax 0.66 m/sec - RVOT Vmax 0.86 m/sec - RVOT VTI 16.63 cm - RVOT peak gradient 2.94 mmHg - Vu/IV: Voiding Method Toilet IV Catheter Type [Right Peripheral IV Forearm] IV Catheter Type [Left Hand] INT / Saline Lock Active Medications - Current Medications Current Medications: Generic Name Dose Route Start Last Admin Trade Name Freq PRN Reason Stop Dose Admin Acetaminophen 650 mg 06/19/20 13:31 Tylenol PO Q4H PRN Pain MILD(1-3)/Fever >100.5/GOMEZ Acetaminophen/Hydrocodone Bitart 1 each 06/19/20 13:31 [place] 5/325 PO Q6H PRN Pain, Moderate (4-6) Sodium Chloride 1,000 mls @ 75 mls/hr 06/18/20 05:15 06/20/20 04:48 Nacl 0.9% 1000 Ml IV 75 mls/hr DIRECT DAYANA Administration Morphine Sulfate 2 mg 06/18/20 05:07 06/18/20 18:03 Morphine IV 2 mg Q4H PRN Administration Pain, Moderate (4-6) Ondansetron HCl 4 mg 06/18/20 05:07 Zofran IV Q4H PRN Nausea And Vomiting
[2020-06-20] MEDS ORDERED: hydrALAZINE 20 MG/1 ML INJ IV PRN (12:11)
[2020-06-20] MEDS: hydroCHLOROthiazide 12.5 MG CAP PO SCH (13:17)
[2020-06-20] MEDS: hydrALAZINE 25 MG TAB PO SCH (21:24)
[2020-06-21] MEDS ORDERED: FENOFIBRATE 145 MG TAB PO SCH (10:00)
[2020-06-21] MEDS: hydroCHLOROthiazide 12.5 MG CAP PO SCH (10:13)
[2020-06-21] MEDS: hydrALAZINE 25 MG TAB PO SCH (10:13)
--- NOTE | 2020-06-21 12:32 | Progress Note ---
Subjective Date of service: 06/21/20 Principal diagnosis: abdominal pain Interval history: Patient continues to do well Patient denies any abdominal pain Hemodynamically stable Abdomen soft, nontender, nondistended 2+ femoral pulses bilaterally Both feet warm and well-perfused Okay to D/C from my standpoint once medically stable Follow-up 1 to 2 weeks Objective - Constitutional Vitals: Vital Signs - 12hr 06/21/20 06/21/20 06/21/20 01:02 04:07 06:00 Temperature 98.8 F 98.4 F Pulse Rate 55 L 68 68 Respiratory 16 18 Rate Blood Pressure 120/62 153/79 O2 Sat by Pulse 97 98 Oximetry 06/21/20 06/21/20 06/21/20 08:27 08:48 12:07 Temperature 98.2 F 97.5 F L Pulse Rate 75 61 Respiratory 20 20 Rate Blood Pressure 117/65 90/58 O2 Sat by Pulse 97 97 97 Oximetry - Labs CBC & Chem 7: 06/20/20 07:02 06/21/20 07:43 Labs: Abnormal lab results 06/19/20 06/21/20 Range/Units 16:00 07:43 Potassium 3.5 L (3.6-5.0) mmol/L Crossmatch See Detail Medications & Allergies - Medications Allergies/Adverse Reactions: Allergies aspirin Allergy (Verified 06/18/20 03:42) Unknown Home Medications: Home Medications Medication Instructions Recorded Confirmed Last Taken Type Aspirin [Adult Low Dose Aspirin EC] 81 mg PO DAILY 02/07/19 06/20/20 2 Days Ago History ~06/18/20 AtorvaSTATin [Lipitor] 20 mg PO QHS #30 tab 02/07/19 06/20/20 2 Days Ago Rx ~06/18/20 Fenofibrate Nanocrystallized 145 mg PO DAILY 02/07/19 06/20/20 2 Days Ago History [Fenofibrate] ~06/18/20 Hydralazine HCl 50 mg PO BID 02/07/19 06/20/20 2 Days Ago History ~06/18/20 ISOSORBIDE MONOnitrate [Imdur ER] 30 mg PO DAILY 02/07/19 06/20/20 2 Days Ago History ~06/18/20 hydroCHLOROthiazide 12.5 mg PO DAILY 02/07/19 06/20/20 2 Days Ago History [Hydrochlorothiazide] ~06/18/20 Active Medications: Generic Name Dose Route Start Last Admin Trade Name Freq PRN Reason Stop Dose Admin Acetaminophen 650 mg 06/19/20 13:31 Tylenol PO Q4H PRN Pain MILD(1-3)/Fever >100.5/GOMEZ Acetaminophen/Hydrocodone Bitart 1 each 06/19/20 13:31 [place] 5/325 PO Q6H PRN Pain, Moderate (4-6) Fenofibrate 145 mg 06/21/20 10:00 06/21/20 10:13 Tricor PO 145 mg DAILY DAYANA Administration Hydralazine HCl 50 mg 06/20/20 22:00 06/21/20 10:13 Apresoline PO 50 mg BID DAYANA Administration Hydralazine HCl 10 mg 06/20/20 12:11 06/20/20 13:17 Apresoline IV 10 mg Q4HR PRN Administration Hypertension Hydrochlorothiazide 12.5 mg 06/20/20 13:00 06/21/20 10:13 Hctz PO 12.5 mg QDAY DAYANA Administration Isosorbide Mononitrate 30 mg 06/21/20 10:00 06/21/20 10:13 Imdur PO 30 mg DAILY DAYANA Administration Morphine Sulfate 2 mg 06/18/20 05:07 06/18/20 18:03 Morphine IV 2 mg Q4H PRN Administration Pain, Moderate (4-6) Ondansetron HCl 4 mg 06/18/20 05:07 Zofran IV Q4H PRN Nausea And Vomiting HEART Score - HEART Score Age: 45-65 Risk factors: 1-2 risk factors Troponin: Troponin T < 0.010 ng/mL (0.00-0.029) 06/18/20 00:41 Troponin: < normal limit - Critical Actions Critical Actions: 0-3 pts:0.9-1.7%risk of adverse cardiac event.Candidate for discharge
[2020-06-21] MEDS ORDERED: POTASSIUM CHLORIDE ER 20 MEQ TAB PO ONE ×2 (12:47→17:00)
--- NOTE | 2020-06-21 12:47 | Discharge Summary ---
Providers - Providers Date of Admission: 06/18/20 08:54 Date of discharge: 06/21/20 Attending physician: NIKKI WORKMAN 06/18/20 04:59 Consult to Physician [CONS] Routine Comment: Consulting Provider: SHANDA CONTI Physician Instructions: Reason For Exam: ABDOMINAL AORTIC ANEURYSM WITH ABDOMINAL PAIN 06/18/20 10:13 Consult to Physician [CONS] Routine Comment: Consulting Provider: ASHLIE REYES Physician Instructions: Reason For Exam: CAD s/p CAG, risk stratification Primary care physician: RECREATION MANAGER Hospitalization Condition: Stable Hospital course: Status post diagnostic aortogram with aortic cuff extension Patient underwent vascular procedure today Aortogram and possible endoleak repair today 1. Bilateral Femoral Artery Access under Ultrasound Guidance 2. Diagnostic Aortogram with Supervision and Interpretation 3. Abdominal Aorta Extension with 23mm x 3.3cm [place] Aortic Cuff 4. Right Femoral Artery Closure using Perclose Device Continue supportive care --History of abdominal aortic aneurysm repair 10/2019 Current Visit: Yes Status: Acute Plan to address problem: Vascular following CT revealed Endo leak along the limbs of the endograft s/p Aortogram and possible endoleak -- Abdominal pain/ due to endoleak of the endovascular stent/POA Current Visit: Yes Status: Acute Plan to address problem: Pain medications, supportive care --History of CAD s/p CABG; Current Visit: Yes Status: Acute Continue current cardiac medications management per cardiology --Hypertension Current Visit: Yes Status: Acute Plan to address problem: Moderate control, continue current antihypertensives PRN medications --Hypokalemia Current Visit: Yes Status: Acute Plan to address problem: Replenish with KCl monitor electrolytes -- Hyponatremia Current Visit: Yes Status: Acute Plan to address problem: Follow electrolytes IV normal saline replacement therapy --dyslipidemia Current Visit: Yes Status: Acute Lipid-lowering medications Disposition: DC-01 TO HOME OR SELFCARE Time spent for discharge: 32 min Core Measure Documentation - Palliative Care Palliative Care/ Comfort Measures: Not Applicable - Core Measures Any of the following diagnoses?: none Exam - Constitutional Vitals: Temp Pulse Resp BP Pulse Ox 97.5 F L 61 20 90/58 97 06/21/20 12:07 06/21/20 12:07 06/21/20 12:07 06/21/20 12:07 06/21/20 12:07 General appearance: Present: no acute distress, well-nourished - EENT Eyes: Present: PERRL, EOM intact - Neck Neck: Present: supple, normal ROM - Respiratory Respiratory effort: normal Respiratory: bilateral: diminished, negative: rales, rhonchi, wheezing - Cardiovascular Rhythm: regular Heart Sounds: Present: S1 & S2 - Extremities Extremities: no ischemia, No edema - Abdominal General gastrointestinal: Present: soft, non-tender, non-distended, normal bowel sounds - Integumentary Integumentary: Present: clear, warm - Musculoskeletal Musculoskeletal: strength equal bilaterally, generalized weakness - Psychiatric Psychiatric: appropriate mood/affect, cooperative - Neurologic Neurologic: moves all extremities Plan Activity: advance as tolerated, fall precautions Diet: other (cardiac diet) Additional Instructions: Fall precautions. If you have worsening symptoms contact MD or go to emergency room. Advised to follow vascular physician per schedule. Advised to follow with primary care physician, cardiology per schedule Follow up with: PRIMARY CARE, [Primary Care Provider] - 3-5 Days NEAL BARBOUR MD [Staff Physician] - 10 Days ROSALIE UGALDE MD [Staff Physician] - 14 Days Prescriptions: HYDROcodone/APAP 5-325 [[place] 5-325 mg TAB] 1 each PO BID PRN #10 tablet PRN Reason: Pain, Moderate (4-6)
[2020-06-21 15:39] VITALS: BP 118/59
== END 2020-06-21 18:36 | disposition home or self-care (01) | DRG 269 ==
LOC: ED 00:03 → 3A 03:51 → 4A 04:34 → OBSVTOIN 08:54
PROVIDERS: ADMIT Internal Medicine; ATTEND Internal Medicine
PROC: 04V03DZ Restriction of Abdominal Aorta with Intraluminal Device, Percutaneous Approach (ICD-10-PCS; principal; 2020-06-19)
PROC: B41D1ZZ Fluoroscopy of Aorta and Bilateral Lower Extremity Arteries using Low Osmolar Contrast (ICD-10-PCS; 2020-06-19)
DX: T82.330A Leakage of aortic (bifurcation) graft (replacement), initial encounter (principal); E87.1 Hypo-osmolality and hyponatremia; I71.4 Abdominal aortic aneurysm, without rupture; R00.1 Bradycardia, unspecified; R10.9 Unspecified abdominal pain; E87.6 Hypokalemia; I10 Essential (primary) hypertension; K52.9 Noninfective gastroenteritis and colitis, unspecified; I25.10 Atherosclerotic heart disease of native coronary artery without angina pectoris; D64.9 Anemia, unspecified; E78.2 Mixed hyperlipidemia; Z79.899 Other long term (current) drug therapy; Z79.82 Long term (current) use of aspirin; Z88.8 Allergy status to other drugs, medicaments and biological substances; Z95.1 Presence of aortocoronary bypass graft
CPT/HCPCS: 34710; 34713; 36415; 70450; 71045; 74177; 76937; 80048; 80076; 81001; 82550; 82962; 83735; 84132; 84484; 85014; 85018; 85025; 86850; 86900; 86901; 86920; 93005; 93306; G0378; C1725; C1760; C1769; C1887; C1894; J0360; J0690; J1170; J1644; J2250; J2270; J2405; J2704; J2720; J3480; J7030; Q9967

== ENCOUNTER 2020-07-30 07:00 | Day surgery (SDC) | payer OTHER ==
[2020-07-30 07:58] LABS: Basophils % (Auto) 0.8 % (0.0-1.8); Eosinophils # (Auto) 0.1 K/mm3 (0.0-0.4); Eosinophils % (Auto) 1.3 % (0.0-4.3); Hematocrit 31.8 % (30.3-42.9); Hemoglobin 10.8 gm/dl (10.1-14.3); Lymphocytes # (Auto) 1.3 K/mm3 (1.2-5.4); Mean Corpuscular HGB Conc 34 % (30-34); Mean Corpuscular Volume 84 fl (79-97); Monocytes # (Auto) 0.5 K/mm3 (0.0-0.8); Monocytes % (Auto) 8.9 % (0.0-7.3); Platelet Count 577 K/mm3 (140-440); Red Cell Distribution Width 15.2 % (13.2-15.2)
[2020-07-30] MEDS: SODIUM CHLORIDE 0.9% 500 ML 500 ML IV SCH ×2 (07:58→09:08)
[2020-07-30] MEDS ORDERED: HEPARIN/NS 5000 UNIT/500ML 1,000 ML IR ONE (08:03)
[2020-07-30] MEDS ORDERED: LIDOCAINE 1%/EPINEPHRINE 1:100,000 VIAL (20 ML) INFILTRATI ONE (08:04)
[2020-07-30 08:06] LABS: INR 0.94 (0.87-1.13); Partial Thromboplastin Time 29.4 Sec. (24.2-36.6)
[2020-07-30 08:09] LABS: Blood Urea Nitrogen 17 mg/dL (7-17); Calcium 9.8 mg/dL (8.4-10.2); Hemolysis Index 0
[2020-07-30] MEDS ORDERED: ceFAZolin/Water 2 GM/20 ML 2 GM/20 ML SYRINGE IV ONE (08:14)
[2020-07-30 08:15] LABS: BUN/Creatinine Ratio 24
[2020-07-30] MEDS: fentaNYL 100 MCG/2 ML INJ ONE ×3 (09:03→10:38)
[2020-07-30] MEDS: MIDAZOLAM 2 MG/2 ML INJ ONE ×2 (09:03→09:46)
[2020-07-30] MEDS: VERAPAMIL 5 MG/2 ML INJ ONE ×2 (09:09→09:13)
[2020-07-30] MEDS: NITROGLYCERIN SYRINGE 3 ML ONE ×2 (09:09→09:13)
[2020-07-30] MEDS: HEPARIN 10,000 UNITS/10 ML VIAL ONE ×4 (09:09→10:15)
[2020-07-30] MEDS ORDERED: MIDAZOLAM 2 MG/2 ML INJ ONE (10:09)
[2020-07-30] MEDS ORDERED: SODIUM CHLORIDE 0.9% 500 ML 0 ML ONE (10:43)
--- NOTE | 2020-07-30 11:08 | Short Stay Summary ---
Short Stay Documentation Date of service: 07/30/20 - History H&P: obtained from office - Allergies and Medications Current Medications: Allergies aspirin Allergy (Verified 07/09/20 07:04) Unknown pt states she gets upset stomach with Aspirin 325mg Home Medications Medication Instructions Recorded Confirmed Last Taken Type Aspirin [Adult Low Dose Aspirin EC] 81 mg PO DAILY 02/07/19 07/30/20 07/29/20 History 81 mg metFORMIN [Glucophage] 500 mg PO BID 07/09/20 07/30/20 07/29/20 History 500 mg oxyCODONE /ACETAMINOPHEN [Percocet 1 tab PO Q6HR PRN #28 tablet 07/16/20 07/30/20 07/27/20 Rx 5/325] 1 tab Apixaban [Eliquis] 5 mg PO BID #60 tablet 07/22/20 07/30/20 07/29/20 Rx 5 mg AtorvaSTATin [Lipitor] 20 mg PO QHS tablet 07/22/20 07/30/20 07/29/20 Rx 20 mg Pantoprazole [Protonix TAB] 40 mg PO QDAY #30 tablet 07/22/20 07/30/20 07/29/20 Rx 40 mg Valsartan [Diovan] 80 mg PO DAILY #30 tablet 07/22/20 07/30/20 07/29/20 Rx 80 mg Active Medications Sodium Chloride (Nacl 0.9% 500 Ml) 500 mls @ 50 mls/hr IV DIRECT DAYANA Last Admin: 07/30/20 09:08 Dose: 50 mls/hr Documented by: - Brief post op/procedure progress note Date of procedure: 07/30/20 Pre-op diagnosis: Type II endoleak Post-op diagnosis: same Procedure: Third order angiography Anesthesia: local Surgeon: SHANDA CONTI Estimated blood loss: none Condition: stable - Disposition Condition at discharge: Good Disposition: DC-01 TO HOME OR SELFCARE Short Stay Discharge Plan Activity: advance as tolerated Weight Bearing Status: Weight Bear as Tolerated Diet: regular Wound: keep clean and dry, per your surgeon's advice Follow up with: GERONIMO PALMER NP [Primary Care Provider] - 7 Days
--- NOTE | 2020-07-30 11:12 | Operative Report ---
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 Date: 07/30/2020 Procedure: Following an explanation of the risks, benefits and alternatives; written informed consent was obtained. The patient was brought to the angiographic suite and placed in supine position on the examination table. Initial ultrasound evaluation of her left wrist was performed and a widely patent left radial artery was identified. The patient passed her Torsten's test. Patient was prepped and draped in the usual sterile fashion. 1% lidocaine was used for anesthesia. Under ultrasound guidance, a 3-1/2 cm 21-gauge needle was advanced into the radial artery. A 0.018 guidewire was advanced centrally. The needle was removed and a 5/6 low-profile sheath was placed over the guidewire and advanced centrally. The 018 guidewire and trocar were removed. An 035 Glidewire, 5 Ethiopian vertebral catheter and 6 Ethiopian MPA guide cath were then advanced in telescoping fashion through the sheath led by the Glidewire. Together the Glidewire catheter and guide cath were advanced into the internal iliac artery on the right side. Contrast was injected and imaging obtained at multiple locations to identify the origin of the right iliolumbar artery. A prograde microcatheter was then advanced through the 5 [place] catheter and selective cannulation of the iliolumbar artery performed. Contrast was injected and imaging obtained at multiple locations. Together the catheter and a variety of micro guidewires were manipulated through the iliolumbar artery. The anastomosis between the iliolumbar and lumbar artery is extremely tortuous and prone to spasm. Nitroglycerin was injected at 2 separate locations in attempt to control the spasm. Ultimately, the guidewire was advanced through the anastomosis into the lumbar artery and into the sac. The catheter however would not follow secondary to arterial spasm. A variety of guidewires were utilized in attempt to advance the catheter further without success. The catheter was withdrawn proximally and additional imaging obtained. The anastomotic connections have completely spasmed closed. At this point, the catheters, guidewires and sheaths were removed and hemostasis achieved in the last few wrist using a TR band. A sterile dressing was applied. The patient tolerated the procedure well. There were no immediate postprocedure complications. Conscious sedation was performed under the guidance of radiologic nursing. Continuous cardiopulmonary monitoring was utilized. Impression: 1) Angiography of type II endoleak coming from a left radial artery approach. Given the tortuosity of the anastomotic connection between the right iliolumbar and lumbar arteries, a catheter could not be passed despite the passage of a wire. The patient will need to be scheduled for either trans-caval or percutaneous ablation of her type II endoleak. She will follow-up in our office in 2 weeks to schedule this procedure.
[2020-07-30] MEDS ORDERED: HYDROcodone/ACETAMINOPHEN 5-325 MG TAB ONE (13:53)
[2020-07-30] MEDS ORDERED: HYDROcodone/ACETAMINOPHEN 5-325 MG TAB PO ONE (14:00)
[2020-07-30 14:06] VITALS: BP 106/58
== END 2020-07-30 14:40 | disposition home or self-care (01) ==
LOC: CATHLABREC 07:00
PROVIDERS: ATTEND Radiology Diagnostic Radiology
DX: I71.4 Abdominal aortic aneurysm, without rupture (principal); T82.330A Leakage of aortic (bifurcation) graft (replacement), initial encounter; I10 Essential (primary) hypertension; E78.2 Mixed hyperlipidemia; I25.118 Atherosclerotic heart disease of native coronary artery with other forms of angina pectoris; G93.40 Encephalopathy, unspecified; Z88.6 Allergy status to analgesic agent; Z79.899 Other long term (current) drug therapy; Z79.82 Long term (current) use of aspirin; Z79.84 Long term (current) use of oral hypoglycemic drugs; Z98.890 Other specified postprocedural states; Z95.1 Presence of aortocoronary bypass graft; Z82.49 Family history of ischemic heart disease and other diseases of the circulatory system; Y82.8 Other medical devices associated with adverse incidents; Y92.89 Other specified places as the place of occurrence of the external cause
CPT/HCPCS: 36247; 36415; 75736; 76937; 80048; 85025; 85610; 85730; 99156; 99157; C1769; C1887; C1894; J0690; J1644; J2250; J3010; J7040; 75710; Q9967

== ENCOUNTER 2020-09-10 06:51 | Day surgery (SDC) | payer OTHER ==
[2020-09-10 07:47] LABS: Basophils # (Auto) 0.1 K/mm3 (0.0-0.1); Basophils % (Auto) 0.7 % (0.0-1.8); Eosinophils # (Auto) 0.1 K/mm3 (0.0-0.4); Eosinophils % (Auto) 1.8 % (0.0-4.3); Hematocrit 33.1 % (30.3-42.9); Hemoglobin 10.7 gm/dl (10.1-14.3); Lymphocytes # (Auto) 1.6 K/mm3 (1.2-5.4); Lymphocytes % (Auto) 21.4 % (13.4-35.0); Mean Corpuscular HGB Conc 33 % (30-34); Mean Corpuscular Volume 82 fl (79-97); Monocytes # (Auto) 0.6 K/mm3 (0.0-0.8); Monocytes % (Auto) 7.3 % (0.0-7.3); Platelet Count 356 K/mm3 (140-440); Red Blood Count 4.03 M/mm3 (3.65-5.03); Red Cell Distribution Width 15.5 % (13.2-15.2)
[2020-09-10 07:58] LABS: Blood Urea Nitrogen 24 mg/dL (7-17); Calcium 9.5 mg/dL (8.4-10.2); Hemolysis Index 1
[2020-09-10 08:00] LABS: BUN/Creatinine Ratio 34
[2020-09-10] MEDS ORDERED: SODIUM CHLORIDE 0.9% 500 ML 500 ML IV SCH (08:00)
[2020-09-10 08:04] LABS: INR 0.99 (0.87-1.13)
[2020-09-10 08:05] LABS: Partial Thromboplastin Time 27.8 Sec. (24.2-36.6)
[2020-09-10] MEDS ORDERED: MIDAZOLAM 5 MG/5 ML INJ MDV IV ONE (08:30)
[2020-09-10] MEDS ORDERED: fentaNYL 100 MCG/2 ML INJ ONE ×2 (08:30→08:38)
[2020-09-10] MEDS ORDERED: MIDAZOLAM 2 MG/2 ML INJ ONE (08:37)
[2020-09-10] MEDS ORDERED: HEPARIN/NS 5000 UNIT/500ML 1,000 ML IR ONE (08:37)
[2020-09-10] MEDS ORDERED: HEPARIN 10,000 UNITS/10 ML VIAL ONE (08:37)
[2020-09-10] MEDS ORDERED: LIDOCAINE (2%) 20 MG/1 ML VIAL 20 ML MDV INFILTRATI ONE (08:37)
[2020-09-10] MEDS: fentaNYL 100 MCG/2 ML INJ IV SCH ×2 (08:47→09:47)
[2020-09-10] MEDS ORDERED: MIDAZOLAM 5 MG/5 ML INJ MDV IV SCH (09:30)
--- NOTE | 2020-09-10 11:28 | Short Stay Summary ---
Short Stay Documentation Date of service: 09/10/20 - History Principal diagnosis: Type II endoleak Past Medical History: PVD, other (Abdominal aortic aneurysm) Past Surgical History: Other (AAA repair with endograft and cuff extension, right leg femoral endarterectomy) Social history: no significant social history - Allergies and Medications Current Medications: Allergies aspirin Allergy (Verified 07/09/20 07:04) Unknown pt states she gets upset stomach with Aspirin 325mg Home Medications Medication Instructions Recorded Confirmed Last Taken Type Aspirin [Adult Low Dose Aspirin EC] 81 mg PO DAILY 02/07/19 09/10/20 09/09/20 History 1 tab metFORMIN [Glucophage] 500 mg PO BID 07/09/20 09/10/20 09/09/20 07:00 History oxyCODONE /ACETAMINOPHEN [Percocet 1 tab PO Q6HR PRN #28 tablet 07/16/20 09/10/20 07/27/20 Rx 5/325] 1 tab AtorvaSTATin [Lipitor] 20 mg PO QHS tablet 07/22/20 09/10/20 09/09/20 Rx 1 tab Valsartan [Diovan] 80 mg PO DAILY #30 tablet 07/22/20 09/10/20 09/09/20 Rx 1 tab Clopidogrel [Plavix] 75 mg PO QDAY 09/10/20 09/10/20 09/09/20 History 1 tab Naproxen [Naprosyn] 500 mg PO BID 09/10/20 09/10/20 09/09/20 History 1 tab Active Medications Fentanyl (Sublimaze) 100 mcg IV ONCE DAYANA Stop: 09/10/20 17:00 Last Admin: 09/10/20 09:47 Dose: 25 mcg Documented by: Sodium Chloride (Nacl 0.9% 500 Ml) 500 mls @ 50 mls/hr IV DIRECT DAYANA Last Admin: 09/10/20 08:45 Dose: 50 mls/hr Documented by: Midazolam HCl (Versed) 5 mg IV ONCE DAYANA Stop: 09/10/20 17:00 Last Admin: 09/10/20 08:47 Dose: 5 mg Documented by: - Physical exam General appearance: no acute distress Integumentary: no rash, no growths HEENT: Atraumatic Lungs: Normal air movement Breasts: deferred Heart: Regular rate Gastrointestinal: normal Female Genitourinary: deferred Rectal Exam: deferred Extremities: no ischemia Neurological: Normal gait, Normal speech - Brief post op/procedure progress note Date of procedure: 09/10/20 Pre-op diagnosis: Type II endoleak Post-op diagnosis: same Procedure: Type II endoleak repair Anesthesia: local Surgeon: SHANDA CONTI Estimated blood loss: minimal Pathology: none Condition: stable - Disposition Condition at discharge: Good Disposition: DC-01 TO HOME OR SELFCARE Short Stay Discharge Plan Activity: advance as tolerated Weight Bearing Status: Weight Bear as Tolerated Diet: regular Wound: keep clean and dry, per your surgeon's advice Follow up with: GERONIMO PALMER NP [Primary Care Provider] - 7 Days
--- NOTE | 2020-09-10 11:33 | Operative Report ---
Operative Report Operative Report: Exam: CT and fluoroscopic guided type II endoleak repair Clinical indication patient with a type II endoleak fed from a right iliolumbar artery and draining into a left lumbar artery with sac enlargement and abdominal pain Date: 09/10/2020 Procedure: Following an explanation of the risks, benefits and alternatives; written informed consent was obtained. The patient was brought to the CT suite and placed in supine position on the gantry. Initial fluoroscopic images were obtained of the abdomen and an appropriate access site was chosen. Multiple access sites were utilized as bowel mobility with temporarily limit access. Ultimately, a midline access site was chosen. The patient was prepped and karon ped in the usual sterile fashion. 1% lidocaine was used for anesthesia. Using intermittent CT guidance, a 15 cm 21-gauge needle was advanced into the Endosac. There was return of blood. A 0.018 guidewire was then advanced through the needle and coiled within the aneurysm endoleak. The needle was removed and an AccuStick transitional dilator advanced over the guidewire into the Endosac. The AccuStick transitional dilator was securely fastened to the skin surface and sterile drapes applied. The patient was then transferred to fluoroscopy. Initial fluoroscopic images demonstrated appropriate positioning of the AccuStick transition dilator and guidewire. The trocar was removed and contrast injected which opacified the endoleak sac. Additionally, the inflow vessels and outflow vessels were opacified. A Medtronic echelon microcatheter and Choice PT guidewire were then utilized to cannulate the inflow iliolumbar artery on the right. Coil embolization was then performed from distal to proximal. The catheter was then exchanged over the guidewire for a larger microcatheter which was positioned in the Endosac. Contrast was injected at multiple locations which demonstrated greatly decreased clearance of contrast within the Endosac. Coil embolization of the Endosac was then performed. Multiple coils were placed in the Endosac and towards the outflow artery. Ultimately, contrast was injected which demonstrates complete stasis of contrast within the Endosac. At this point, the catheters guidewires and AccuStick transition dilator with withdrawn proximally. A minimal amount of contrast was injected to opacify the tract and no extravasation of contrast was seen into the abdominal cavity. An attempt to coil the tract was unsuccessful. The AccuStick transitional dilator and catheter were therefore removed. Hemostasis was achieved at the skin surface using manual compression. A sterile dressing was applied. Patient tolerated the procedure well. There were no immediate postprocedure complications. Conscious sedation was performed under the guidance of radiologic nursing. Continuous cardiopulmonary monitoring was utilized. Impression: CT and fluoroscopic guided type II endoleak repair with direct sac puncture and coil embolization of the inflow artery and Endosac.
[2020-09-10 15:53] VITALS: BP 139/65
--- NOTE | 2020-10-08 12:33 | Cat Scan Report ---
Exam: CT-guided placement of needle in abdominal aortic endoleak sac Clinical indication: Patient with a history of abdominal aortic aneurysm status post repair who developed a type II endoleak. Access obtained using CT guidance with patient bending transferred to fluoroscopy suite for continuation of procedure. Date: 09/10/2020 Procedure: Following a next duration of the risks, benefits and alternatives; written informed consent was obtained. The patient was brought to the CT suite and placed on the gantry. Initial loading shovel oiler images of the abdomen were performed and an appropriate access site was chosen. The patient's abdomen was prepped and draped in usual sterile fashion. Using intermittent CT guidance, a 15 cm 21-gauge needle was advanced into the endoleak channel. A total of 3 separate accesses were utilized as accesses had to be abandoned secondary to movement of bowel impeding the flow of needle. Ultimately, the third access was utilized as bowel state of the way. With the needle in the endoleak channel, there was prompt return of pulsatile blood. A 0.018 mandrel guidewire was advanced into the endoleak channel and the needle was removed. The guidewire was then securely fastened to the skin surface using sterile dressings and the patient transferred to fluoroscopy suite for continuation of the procedure. The patient tolerated the initial portion of the procedure well. There were no immediate post procedure complications. Conscious sedation was initiated and utilized under the guidance of radiologic nursing. Continuous cardiopulmonary monitoring was utilized. Impression: CT-guided placement of needle and guidewire in abdominal aortic endoleak channel prior to transfer of patient to fluoroscopy suite for continuation of procedure.
== END 2020-09-10 16:16 | disposition home or self-care (01) ==
LOC: CATHLABREC 06:51 → CATH 06:51 → CATHLABREC 16:16
PROVIDERS: ATTEND Radiology Diagnostic Radiology
DX: T82.330A Leakage of aortic (bifurcation) graft (replacement), initial encounter (principal); I71.4 Abdominal aortic aneurysm, without rupture; I10 Essential (primary) hypertension; E78.2 Mixed hyperlipidemia; G93.40 Encephalopathy, unspecified; I25.119 Atherosclerotic heart disease of native coronary artery with unspecified angina pectoris; E11.9 Type 2 diabetes mellitus without complications; D64.9 Anemia, unspecified; Z79.899 Other long term (current) drug therapy; Z79.82 Long term (current) use of aspirin; Z79.84 Long term (current) use of oral hypoglycemic drugs; Z88.6 Allergy status to analgesic agent; Z98.890 Other specified postprocedural states; Z95.1 Presence of aortocoronary bypass graft; Z82.49 Family history of ischemic heart disease and other diseases of the circulatory system
CPT/HCPCS: 36415; 37242; 77012; 80048; 85025; 85610; 85730; 99156; 99157; C1769; C1887; J1644; J2250; J3010; J7040; 34710; Q9967

== ENCOUNTER 2020-10-22 09:55 | Outpatient (CLI) | payer OTHER ==
[2020-10-22 11:37] LABS: Blood Urea Nitrogen 17 mg/dL (7-17)
--- NOTE | 2020-10-22 14:10 | Cat Scan Report ---
CTA ABDOMEN, PELVIS, AND LOWER EXTREMITIES INDICATION / CLINICAL INFORMATION: AORTIC ANEURYSM. TECHNIQUE: Axial CT images were obtained through the abdomen, pelvis and lower extremities after injection of 10 0 cc IV contrast. 3 plane MIP / 3D reconstructions were produced. All CT scans at this location are p erformed using CT dose reduction for ALARA by means of automated exposure control. COMPARISON: 07/12/2020 FINDINGS: CTA ABDOMEN: Abdominal Aorta: Aortic biiliac stent is unchanged in position. There are 2 focal areas of fusiform d ilatation. A 3.1 cm fusiform aneurysm in the infrarenal aorta is stable. There is a second fusiform a neurysm in the distal aorta just above the bifurcation which is stable measuring 5.2 cm in maximum di ameter. Multiple surgical coils have been inserted at the level of the larger aneurysm presumably to repair an endoleak. The coils degenerate severe streak artifact. No obvious endoleak is appreciated o n this severely limited examination but residual endoleak is difficult to exclude. Celiac Artery: No significant abnormality. Superior Mesenteric Artery: No significant abnormality. Right Renal Artery: Dual right renal arteries are identified without significant abnormality. Left Renal Artery: No significant abnormality. Inferior Mesenteric Artery: Occluded at its origin but reconstituted distally. CTA PELVIS: RIGHT: - Common Iliac Artery: No significant abnormality. - Internal Iliac Artery: Moderate atherosclerotic disease but no stenosis. - External Iliac Artery: No significant abnormality. LEFT: - Common Iliac Artery: No significant abnormality. - Internal Iliac Artery: Occluded which is unchanged. - External Iliac Artery: No significant abnormality. CTA LOWER EXTREMITIES: RIGHT LOWER EXTREMITY: - Common Femoral Artery: No significant abnormality. - Superficial Femoral Artery: No significant abnormality. - Profunda Femoral Artery: No significant abnormality. - Popliteal Artery: No significant abnormality. - Anterior Tibial Artery: No significant abnormality. - Tibioperoneal Trunk: No significant abnormality. - Posterior Tibial Artery: No significant abnormality. - Peroneal Artery: No significant abnormality. - Ankle runoff: Three vessel. LEFT LOWER EXTREMITY: - Common Femoral Artery: No significant abnormality. - Superficial Femoral Artery: No significant abnormality. - Profunda Femoral Artery: No significant abnormality. - Popliteal Artery: No significant abnormality. - Anterior Tibial Artery: No significant abnormality. - Tibioperoneal Trunk: No significant abnormality. - Posterior Tibial Artery: No significant abnormality. - Peroneal Artery: No significant abnormality. - Ankle runoff: Three vessel. NONTARGET STRUCTURES: ABDOMEN:The liver, biliary system, pancreas, spleen, kidneys, adrenal glands and bowel loops are unre markable. PELVIS:Large fibroid in the anterior wall of the uterus measuring 6.2 cm is unchanged. LOWER EXTREMITIES:No significant abnormality. SKELETAL: Osteopenia. Mild degenerative changes in the thoracolumbar spine. ADDITIONAL FINDINGS: None. IMPRESSION: Limited exam secondary to interval coiling of an endoleak in the distal aorta. There are 2 focal fusi form aneurysms in the infrarenal aorta as described above which appear stable in size. I cannot confi dently evaluate the previously described endoleak in the distal AAA due to streak artifact from surgi santy hardware. No obvious endoleak is appreciated. Signer Name: Gilbert Lee Jr, MD Signed: 10/22/2020 2:06 PM Workstation Name: [id number]
== END 2020-10-22 09:56 | disposition home or self-care (01) ==
LOC: CT 09:55
PROVIDERS: ATTEND Radiology Diagnostic Radiology
DX: I71.9 Aortic aneurysm of unspecified site, without rupture (principal); I25.10 Atherosclerotic heart disease of native coronary artery without angina pectoris; D25.9 Leiomyoma of uterus, unspecified; M85.80 Other specified disorders of bone density and structure, unspecified site; M47.895 Other spondylosis, thoracolumbar region
CPT/HCPCS: 36415; 75635; 82565; 84520; Q9967

== ENCOUNTER 2021-07-05 08:51 | Outpatient (CLI) | payer OTHER ==
[2021-07-05 09:42] LABS: Blood Urea Nitrogen 15 mg/dL (7-17)
--- NOTE | 2021-07-05 12:06 | Cat Scan Report ---
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 TECHNIQUE: Axial CT images were obtained through the abdomen, pelvis and lower extremities after inje ction of 100 cc of Omnipaque 350 IV contrast. 3 plane MIP / 3D reconstructions were produced. All CT scans at this location are performed using CT dose reduction for ALARA by means of automated exposure control. COMPARISON: 10/22/2020 and 06/18/2020 FINDINGS: CTA ABDOMEN: Abdominal Aorta: There is a aortic stent noted which begins in the infrarenal aorta and terminates as bilateral common iliac stents. There is appropriate opacification of the stent lumen. Large streak a rtifact is noted along the lateral aspect of the proximal left common iliac stent (intra-aortic porti on) from prior embolization coil placement. This does not appear significantly changed compared to pr ior CT. Celiac Artery: No significant abnormality. Superior Mesenteric Artery: No significant abnormality. Right Renal Artery: No significant abnormality. Left Renal Artery: No significant abnormality. Inferior Mesenteric Artery: No significant abnormality. CTA PELVIS: RIGHT: - Common Iliac Artery: Status post stent placement. Appropriate opacification of the intraluminal donn nt. - Internal Iliac Artery: Mild atherosclerotic disease - External Iliac Artery: No significant abnormality. LEFT: - Common Iliac Artery: Status post stent placement. Appropriate opacification of the intraluminal donn nt. - Internal Iliac Artery: No significant abnormality. - External Iliac Artery: Status post stent placement. Appropriate opacification of the intraluminal s tent. CTA LOWER EXTREMITIES: RIGHT LOWER EXTREMITY: - Common Femoral Artery: No significant abnormality. - Superficial Femoral Artery: No significant abnormality. - Profunda Femoral Artery: No significant abnormality. - Popliteal Artery: No significant abnormality. - Anterior Tibial Artery: Poor opacification which may be secondary to bolus timing - Tibioperoneal Trunk: Poor opacification which may be secondary to bolus timing. - Posterior Tibial Artery: Poor opacification which may be secondary to bolus timing - Peroneal Artery: Poor opacification which may be secondary to bolus timing - Ankle runoff: Three vessel. LEFT LOWER EXTREMITY: - Common Femoral Artery: Mild atherosclerotic disease - Superficial Femoral Artery: No significant abnormality. - Profunda Femoral Artery: No significant abnormality. - Popliteal Artery: No significant abnormality. - Anterior Tibial Artery: Poor opacification which may be secondary to bolus timing - Tibioperoneal Trunk: No significant abnormality. - Posterior Tibial Artery: Poor opacification which may be secondary to bolus timing - Peroneal Artery: No significant abnormality. - Ankle runoff: Three vessel. NONTARGET STRUCTURES: LUNG BASES: Redemonstrated 1.5 cm solid pulmonary nodule, unchanged. ABDOMEN:No significant abnormality. PELVIS:No significant abnormality. LOWER EXTREMITIES:No significant abnormality. SKELETAL: No significant abnormality. ADDITIONAL FINDINGS: Surgical change to the right inguinal canal. IMPRESSION: 1. No significant change from previous CT dated 10/22/2020. Signer Name: Jerad Cleary DO Signed: 07/05/2021 12:01 PM Workstation Name: [id number]
== END 2021-07-05 08:52 | disposition home or self-care (01) ==
LOC: CT 08:51
PROVIDERS: ATTEND Radiology Diagnostic Radiology
DX: I70.292 Other atherosclerosis of native arteries of extremities, left leg (principal); I71.4 Abdominal aortic aneurysm, without rupture; R91.1 Solitary pulmonary nodule; Z95.2 Presence of prosthetic heart valve
CPT/HCPCS: 36415; 75635; 82565; 84520; Q9967